=== PATIENT | female | born 1945 | race Caucasian/White ===

== ENCOUNTER 2017-04-17 20:04 | Emergency (ER) | payer MEDICARE, OTHER ==
--- NOTE | 2017-04-17 21:24 | CT ---
EXAMINATION TYPE: CT brain robert wo con DATE OF EXAM: 04/17/2017 COMPARISON: NONE HISTORY: Slip and fall today. Right periorbital soft tissue swelling. CT DLP: 1486.6 mGycm. Automated Exposure Control for Dose Reduction was Utilized. TECHNIQUE: CT scan of the head and cervical spine are performed without contrast. FINDINGS: There is no acute intracranial hemorrhage or midline shift identified. There is diffuse v entricular and sulcal prominence consistent with diffuse age-related cerebral atrophy. There is low- attenuation in the periventricular white matter consistent with chronic small vessel ischemic change. The globes are intact. Moderate right mucosal thickening is seen within the maxillary sinus as well as mild ethmoidal mucosal thickening. Remaining paranasal sinuses are well aerated. Right periorbita l soft tissue swelling is noted that is preseptal extending over the right maxilla. Cervical spine is visualized in its entirety from C1 through upper thoracic levels and demonstrates s atisfactory alignment without evidence of acute fracture or dislocation. Multilevel moderate degenera tive changes of the cervical spine are demonstrated as small posterior disc osteophyte complexes at C 4-C5, C5-C6 and C6-C7 creating mild spinal canal stenosis as well as multilevel uncovertebral hypertr ophy and facet arthropathy creating variable degrees of neural foraminal stenosis. At C4-C5 there is mild right-sided neural foraminal narrowing. At C5-C6 there is moderate bilateral neural foraminal na rrowing. At C6-C7 there is mild right-sided neural foraminal narrowing. Prevertebral soft tissue appe ars within normal limits. The C1-C2 articulation is unremarkable. IMPRESSION: 1. There is no acute fracture or dislocation evident in the cervical spine. 2. No acute intracranial hemorrhage, mass effect, or midline shift is seen. 3. Diffuse age-related cerebral atrophy and chronic small vessel ischemic change. 4. Preseptal right periorbital soft tissue swelling. 4. Moderate paranasal sinus disease. 5. Moderate multilevel degenerative changes of the cervical spine resulting in mild spinal canal sten osis from C4 through C7.
--- NOTE | 2017-04-17 21:32 | CT ---
EXAMINATION TYPE: CT facial bones wo con DATE OF EXAM: 04/17/2017 HISTORY: Slip and fall today. CT DLP: 691.5 mGycm. Automated Exposure Control for Dose Reduction was Utilized. TECHNIQUE: CT scan of the facial bones is performed without contrast. COMPARISON: CT brain of the same date. FINDINGS: There is circumferential moderate mucosal thickening of the right maxillary sinus. Presept al periorbital soft tissue swelling is seen around the right orbit. Globes are intact and lenses are in place. Extraocular muscles are symmetric. No post septal soft tissue swelling. Lamina Propecia and nasal bone are also intact. There is leftward nasal deviation, either congenital or related to prior injury. Nasal septum is also intact. Scant mucosal thickening is seen within the ethmoid sinuses. Re maining paranasal sinuses are well aerated. There is occlusion of the right ostiomeatal complex. Left ostium renal complex is patent. No orbital fracture is identified. Visualized portions of the brain are discussed in the CT brain dictation of the same date. IMPRESSION: 1. Right periorbital preseptal soft tissue swelling without evidence of lens dislocation, globe ruptu re, or orbital fracture. 2. Moderate paranasal sinus disease.
[2017-04-17 21:47] VITALS: TEMP 97.8
[2017-04-17 21:49] VITALS: BP 186/83; PULSE 88; RESP 18
[2017-04-17] MEDS ORDERED: ACETAMINOPHEN TAB 500 MG TAB PO STA (21:54)
--- NOTE | 2017-04-17 21:58 | ED ---
General Adult HPI - General Chief complaint: Head Injury Stated complaint: facial injury Time Seen by Provider: 04/17/17 21:42 Source: patient, family, RN notes reviewed Mode of arrival: ambulatory Limitations: no limitations - History of Present Illness Initial comments: 71-year-old female presents emergency department with a chief complaint of right -sided facial pain. Patient had a trip and fall today and hit the right side of her face. She states it happened this morning. She states now some swelling and bruising around her right eye so she became concerned. Patient states there is been no loss of consciousness with this. She states was a simple trip and fall there is no chest pain shortness of breath lightheadedness or dizziness before this. She states she's having some head pain and neck pain. She denies any arm pain any hip pain. She was able to get up by herself following the incident. They were concerned due to the continued symptoms so she thought that she should be seen. Patient denies any recent fever, chills, shortness of breath, chest pain, back pain, abdominal pain, nausea vomiting, numbness or tingling, dysuria or hematuria, constipation or diarrhea, headaches or visual changes, or any other current symptoms. - Related Data Home Medications Medication Instructions Recorded Confirmed Liraglutide [Victoza 2-Stepan] 1.8 mg SQ DAILY 02/13/15 04/17/17 Ergocalciferol [Vitamin D2 50,000 unit PO Q30D 11/23/15 11/23/15 (DRISDOL)] Simvastatin 40 mg PO HS 11/23/15 11/23/15 Tiotropium 18 Mcg/Puff [Spiriva] 1 puff INHALATION RT-DAILY 11/23/15 11/23/15 Hydrochlorothiazide [Hydrodiuril] 25 mg PO DAILY 04/17/17 04/17/17 Insulin Glargine [Lantus] 120 unit SQ HS 04/17/17 04/17/17 Insulin Lispro [humaLOG Kwikpen] 26 unit SQ AC-BID@1000,1600 04/17/17 04/17/17 Previous Rx's Medication Instructions Recorded Levothyroxine Sodium [Levoxyl] 112 mcg PO DAILY #30 tab 11/26/15 Allergies Allergy/AdvReac Type Severity Reaction Status Date / Time No Known Allergies Allergy Verified 04/17/17 21:45 Review of Systems ROS Statement: Those systems with pertinent positive or pertinent negative responses have been documented in the HPI. ROS Other: All systems not noted in ROS Statement are negative. Past Medical History Past Medical History: Diabetes Mellitus, GERD/Reflux, Hypertension, Thyroid Disorder Additional Past Medical History / Comment(s): sciatica, hernia History of Any Multi-Drug Resistant Organisms: None Reported Past Surgical History: Bowel Resection, Cholecystectomy, Hysterectomy Additional Past Surgical History / Comment(s): repair of bowel from colonoscopy Past Psychological History: No Psychological Hx Reported Smoking Status: Never smoker Past Alcohol Use History: None Reported Past Drug Use History: None Reported General Exam - General Exam Comments Initial Comments: General: The patient is awake and alert, in no distress, and does not appear acutely ill. Head: Ecchymosis and swelling under the right eye. Eye: Pupils are equal, round and reactive to light, extra-ocular movements are intact; there is normal conjunctiva bilaterally. No signs of icterus. Ears, nose, mouth and throat: There are moist mucous membranes and no oral lesions. Neck: The neck is supple, there is no tenderness. Cardiovascular: There is a regular rate and rhythm. No murmur, rub or gallop is appreciated. Respiratory: Lungs are clear to auscultation, respirations are non-labored, breath sounds are equal. No wheezes, stridor, rales, or rhonchi. Gastrointestinal: Soft, non-distended, non-tender abdomen without masses or organomegaly noted. There is no rebound or guarding present. No CVA tenderness. Bowel sounds are unremarkable. Back: There is no tenderness to palpation in the midline. There is no obvious deformity. No rashes noted. Musculoskeletal: Normal ROM, no tenderness, There is no pedal edema. There is no calf tenderness or swelling. Sensation intact. Pulses equal bilaterally 2+. Neurological: CN II-XII intact, There are no obvious motor or sensory deficits. Coordination appears grossly intact. Speech is normal. Skin: Skin is warm and dry and no rashes or lesions are noted. Psychiatric: Cooperative, appropriate mood & affect, normal judgment. Limitations: no limitations Course Vital Signs 04/17/17 04/17/17 20:23 21:45 Temperature 98.8 F 97.8 F Pulse Rate 51 L 88 Respiratory 20 18 Rate Blood Pressure 191/91 186/83 O2 Sat by Pulse 96 95 Oximetry Medical Decision Making - Medical Decision Making 72-year-old female presents for treatment fall. This time CT is negative for any acute process. At this time we discussed using Motrin Tylenol for pain. We did discuss return parameters and follow-up with watch for possible outcomes. We discussed all the patient and family's questions. They stated the Pedro management this plan. All questions have been answered. At this time they will be discharged. Disposition Clinical Impression: Facial contusion, Fall, Cervical strain, acute Disposition: HOME SELF-CARE Condition: Stable Instructions: Contusion in Adults (ED), Head Injury (ED) Additional Instructions: Please use medication as discussed. Please follow up with family doctor if symptoms have not improved over the next two days. Please return to the emergency room if your symptoms increase or worsen or for any other concerns. Ice the area 20 minutes on 20 minutes off for next 24 hours. Referrals: Bryan Shine DO [Primary Care Provider] - 1-2 days Time of Disposition: 21:57
== END 2017-04-17 22:05 | disposition home or self-care (01) ==
LOC: EC 20:04
DX: S16.1XXA Strain of muscle, fascia and tendon at neck level, initial encounter (principal); S00.11XA Contusion of right eyelid and periocular area, initial encounter; I10 Essential (primary) hypertension; E11.9 Type 2 diabetes mellitus without complications; Z79.4 Long term (current) use of insulin; Z79.899 Other long term (current) drug therapy; W00.0XXA Fall on same level due to ice and snow, initial encounter; Y92.009 Unspecified place in unspecified non-institutional (private) residence as the place of occurrence of the external cause
CPT/HCPCS: 70450; 70486; 72125; 99283

== ENCOUNTER → 2017-05-24 | Outpatient (CLI) | payer MEDICARE, OTHER ==
[2017-05-24 14:40] LABS: Potassium 3.5 mmol/L (3.5-5.1)
== END | disposition home or self-care (01) ==
LOC: LABPAT 14:05
PROVIDERS: ATTEND Anesthesiology
DX: Z01.812 Encounter for preprocedural laboratory examination (principal); I10 Essential (primary) hypertension; E11.9 Type 2 diabetes mellitus without complications
CPT/HCPCS: 36415; 80051; 82565; 82947; 84520; 86850; 86900; 86901

== ENCOUNTER → 2017-06-05 | Outpatient (CLI) | payer MEDICARE, OTHER | END | disposition home or self-care (01) | LOC: LABWHC1 09:00 | PROVIDERS: ATTEND Anesthesiology | DX: Z01.812 Encounter for preprocedural laboratory examination (principal) | CPT/HCPCS: 36415; 86850; 86900; 86901 ==

== ENCOUNTER 2017-06-08 09:57 | Day surgery (SDC) | payer MEDICARE, OTHER ==
[2017-06-01 10:56] VITALS: BMI 36.6
--- NOTE | 2017-06-08 07:47 | P.GSHP ---
History of Present Illness H&P Date: 06/08/17 CHIEF COMPLAINT: Hernias. HISTORY OF PRESENT ILLNESS: Linh Cervantes is a 72 year-old female who reports back in 2008 having a colonoscopy with Dr. Chan where she had a perforated colon and emergency surgery. As a result, she now comes in with an incisional hernia of the lower abdomen. Separately, she comes in with a BMI over 36. She has hypertension, diabetes, as well as gastroesophageal reflux disease and hyperlipidemia. She has multiple comorbidities related to her obesity. She has tried losing weight, without success as she also has hypothyroidism. She now presents for further evaluation and management. PAST MEDICAL HISTORY: Please see list. PAST SURGICAL HISTORY: Please see list. MEDICATIONS: Please see list. ALLERGIES: Please see list. SOCIAL HISTORY: No illicit drug use FAMILY HISTORY: No reports of Crohn disease or ulcerative colitis. REVIEW OF ORGAN SYSTEMS: CONSTITUTIONAL: No reports of fevers or chills. GI: Denies any blood in stools or constipation. PHYSICAL EXAM: Patient is a 72-year-old female. Abdomen: 3 cm reducible umbilical hernia. Of the lower abdomen, a 4 x 3 cm incisional hernia of the lower midline. Abdomen is protuberant. Pannus with mild panniculitis was identified. GENERAL: Well developed and in no acute distress. Pleasant. HEENT: No sclera icterus. Extraocular movements grossly intact. Moist buccal mucosa. Head is atraumatic, normocephalic. Hears conversational speech. No nasal drainage. NECK: Supple without lymphadenopathy. No JV distention. CHEST: Non-labored respirations and equal bilateral excursions. CARDIOVASCULAR: Regular rate and rhythm. Palpable 2+ radial pulses. MUSCULOSKELETAL: No clubbing, cyanosis or edema. NEUROLOGIC: No focal or lateralizing signs. PSYCH: Appropriate affect. Alert and oriented to person, place and time. SKIN: Well perfused. Good skin turgor. ASSESSMENT: 1. Incisional hernia. 2. Umbilical hernia. 3. Morbid obesity. 4. Insulin dependent diabetes. 5. Hypothyroidism. 6. Panniculitis. PLAN: 1. Have recommended options to address her weight, whereby she is referred to the Bariatric seminar. 2. Robotic assisted ventral hernia repair was described. We did discuss the placement of the mesh. Since she is seeking additional surgeries, potentially mesh repair would be avoided. 3. She has completed cardiac risk assessment. 4. DVT prophylaxis. 5. Antibiotics prophylaxis. Past Medical History Past Medical History: Diabetes Mellitus, GERD/Reflux, Hypertension, Thyroid Disorder Additional Past Medical History / Comment(s): EC VISIT ON 04/17/17, RIGHT FACIAL INJURY, NO FX. Sciatica. Hernia History of Any Multi-Drug Resistant Organisms: None Reported Past Surgical History: Bowel Resection, Cholecystectomy, Hysterectomy Additional Past Surgical History / Comment(s): "repair of bowel from colonoscopy " Past Anesthesia/Blood Transfusion Reactions: No Reported Reaction Past Psychological History: No Psychological Hx Reported Smoking Status: Never smoker Past Alcohol Use History: None Reported Past Drug Use History: None Reported - Past Family History Mother Family Medical History: No Reported History Medications and Allergies Home Medications Medication Instructions Recorded Confirmed Type Liraglutide [Victoza 2-Stepan] 1.8 mg SQ AC-LUNCH 02/13/15 06/01/17 History Ergocalciferol [Vitamin D2 50,000 unit PO Q30D 11/23/15 06/01/17 History (DRISDOL)] Tiotropium 18 Mcg/Puff [Spiriva] 1 puff INHALATION DAILY PRN 11/23/15 06/01/17 History Hydrochlorothiazide [Hydrodiuril] 25 mg PO QAM 04/17/17 06/01/17 History Insulin Glargine [Lantus] 120 unit SQ HS 04/17/17 06/01/17 History Insulin Lispro [humaLOG Kwikpen] 26 unit SQ AC-BID@1000,1600 04/17/17 06/01/17 History Levothyroxine Sodium [Levoxyl] 112 mcg PO QAM 05/24/17 06/01/17 History HYDROcodone/APAP 5-325MG [[place] 1 tab PO Q4HR PRN 06/01/17 06/01/17 History 5-325] Allergies Allergy/AdvReac Type Severity Reaction Status Date / Time No Known Allergies Allergy Verified 06/01/17 10:35
[~2017-06-08 09:57] MED LIST: DEXAMETHASONE SOD PHOSPHATE 10 MG/ML 1 ML VIAL IV ONE; HEPARIN SODIUM,PORCINE 5,000 UNIT/ML 1 ML VIAL SQ ONE; HYDROmorphone 0.5 MG/0.5 ML SYRINGE IVP PRN; LIDOCAINE 1% 20 ML VIAL (10MG/ML) FOR IV START INTRADERMA PRN; MIDAZOLAM 2 MG/2 ML VIAL IV PRN; MORPHINE SULFATE 2 MG/ML SYRINGE IV PRN; ONDANSETRON 4 MG/2 ML VIAL IVP ONE; SCOPOLAMINE 1.5MG/72HR PATCH TRANSDERM ONE; ceFAZolin IN SWFI 2 GM/20 ML SYRINGE IVP ONE
[2017-06-08] MEDS: LACTATED RINGERS 1,000 ML IV SCH ×2 (10:44→11:09)
[2017-06-08 10:45] LABS: Glucose,Whole Blood 183 mg/dL (75-99)
[2017-06-08 10:58] LABS: Basophils # (A) 0.1 k/uL (0-0.2); Basophils % (A) 1 %; Eosinophils # (A) 0.3 k/uL (0-0.7); Eosinophils % (A) 3 %; HCT 42.9 % (34.0-46.0); HGB 15.4 gm/dL (11.4-16.0); Lymphocytes # (A) 2.2 k/uL (1.0-4.8); Lymphocytes % (A) 21 %; MCH 30.1 pg (25.0-35.0); MCHC 35.9 g/dL (31.0-37.0); MCV 83.8 fL (80.0-100.0); Mean Platelet Volume 6.4; Monocytes # (A) 0.4 k/uL (0-1.0); Monocytes % (A) 4 %; Neutrophils # (A) 7.4 k/uL (1.3-7.7); Neutrophils % (A) 71 %; Platelet Count 279 k/uL (150-450); RBC 5.11 m/uL (3.80-5.40); RDW 14.1 % (11.5-15.5); WBC 10.4 k/uL (3.8-10.6)
[2017-06-08] MEDS ORDERED: BUPIVACAINE (PF) 0.25% 30 ML VIAL SQ ONE (11:07)
[2017-06-08] MEDS ORDERED: SUCCINYLCHOLINE CHLORIDE 100 MG/5 ML SYR IV ONE (11:11)
[2017-06-08] MEDS ORDERED: GLYCOPYRROLATE 0.2 MG/ML 2 ML VIAL ONE (11:11)
[2017-06-08] MEDS ORDERED: ROCURONIUM BROMIDE 10 MG/ML 10 ML VIAL IV ONE (11:11)
[2017-06-08] MEDS ORDERED: ePHEDrine 50 MG/ML 1 ML AMP ONE (11:11)
[2017-06-08] MEDS ORDERED: hydrALAZINE HCL 20 MG/ML 1 ML VIAL ONE (11:11)
[2017-06-08] MEDS ORDERED: MIDAZOLAM 2 MG/2 ML VIAL ONE (11:11)
[2017-06-08] MEDS ORDERED: ROPIVACAINE 5 MG/ML 30 ML VIAL ONE (11:11)
[2017-06-08] MEDS ORDERED: PROPOFOL 10 MG/ML 20 ML VIAL IV ONE (11:11)
[2017-06-08] MEDS ORDERED: fentaNYL (PF) 50 MCG/ML 2 ML AMP ONE (11:11)
[2017-06-08] MEDS ORDERED: LIDOCAINE 1% INJ 10MG/ML (20 ML MDV) ONE (11:11)
[2017-06-08] MEDS ORDERED: NEOSTIGMINE 1 MG/ML 10 ML VIAL ONE (11:11)
[2017-06-08] MEDS ORDERED: BUPIVACAINE (PF) 0.5% 30 ML VIAL SQ ONE (11:48)
[2017-06-08] MEDS ORDERED: LACTATED RINGERS 1,000 ML IV ONE (13:13)
[2017-06-08 13:25] VITALS: RESP 16; TEMP 98.2
[2017-06-08] MEDS: fentaNYL (PF) 50 MCG/ML 2 ML AMP IV PRN ×2 (13:26→13:41)
--- NOTE | 2017-06-08 13:27 | P.OP ---
Date of Procedure: 06/08/17 Description of Procedure: SURGEON: GAEL SOSA MD NATURAL SCIENCES MANAGER: 1. EDVIN CABRALES PREOPERATIVE DIAGNOSES: 1. Initial incisional ventral hernia, initial 2. Umbilical hernia, initial 3. History of previous exploratory laparotomy 4. Morbid obesity due to excess calories 5. Body mass index 36.6 6. Diabetes type insulin-dependent 7. Diffuse osteoarthritis 8. Chronic obstructive pulmonary disease 9. Hypothyroidism 10. Heart arrhythmia, big[place]y POSTOPERATIVE DIAGNOSES: 1. Initial incisional ventral hernia, initial 2. Umbilical hernia, initial 3. History of previous exploratory laparotomy 4. Morbid obesity due to excess calories 5. Body mass index 36.6 6. Diabetes type insulin-dependent 7. Diffuse osteoarthritis 8. Chronic obstructive pulmonary disease 9. Hypothyroidism 10. Heart arrhythmia, [place]y 12. Moderate peritoneal adhesions right upper quadrant and lower midline, greater omentum to abdominal wall 13. Incarcerated incisional ventral hernia 5 cm, lower midline, initial 14. Incarcerated umbilical hernia, 3 cm, initial OPERATION: 1. Robotic-assisted da Huy Si laparoscopic lysis of adhesions over 30 minutes , midline and right upper quadrant 2. Robotic-assisted da Huy Si laparoscopic repair of initial incarcerated incisional hernia 5 cm without mesh, lower abdomen 3. Robotic-assisted da Huy Si laparoscopic repair of initial incarcerated umbilical hernia 3 cm without mesh, lower abdomen ANESTHESIA: General with local ESTIMATED BLOOD LOSS: 10 mL. SPECIMENS: None. COMPLICATIONS: None. INDICATIONS: The patient is a 72-year-old female who presents with pain and swelling along the lower abdomen including periumbilical pain. Her history significant for previous exploratory laparotomy for perforated colon during colonoscopy. Clinical exam are consistent with incisional hernia including umbilical hernia. Additionally, she completed cardiac risks assessment within 3 months of her procedure. Surgical intervention with laparoscopic versus robotic and open techniques were reviewed. Placement of mesh was also reviewed. As patient wanted to avoid mesh, mesh repair is deferred. Benefits and risks were thoroughly described. Informed consent was obtained. DESCRIPTION OF PROCEDURE: The patient was brought into the operating room and laid in supine position. After general induction, the abdomen had been prepped and draped in standard sterile fashion. Ioban draping was also placed. Prior to incision, a timeout protocol was confirmed with surgical team regarding the patient's name including procedures to be performed. The robot was primed prior to the procedure. A field block using local anesthetic was placed along hernia site including the proposed port sites. Initial incision was made with an #11 blade along the left upper quadrant. A 0 degree 5 mm laparoscopic trocar entry was performed. Diagnostic laparoscopy demonstrated moderate peritoneal adhesions involving the right upper quadrant and midline of greater omentum to abdominal wall. Separately an incarcerated incisional hernia with omentum of the lower midline was identified. A separate incarcerated umbilical hernia was also identified. A 12 mm trocar was placed along the left lateral abdominal wall. An 8 mm port was placed along the left lower quadrant under direct localization. The 5-mm port was exchanged for an 8 mm robotic port. Placements of the ports were 15 cm from the target anatomy and approximately 10 cm apart. The da Huy Si robot was previously primed, prepped and draped then docked along the right side of the patient. I then sat at the robot Da Huy Si console where working arms of the robot including Bovie cautery connected to robotic scissors, vessel sealer, needle show horse driver, and graspers placed by the construction management assistant. Adhesions along the right upper quadrant and midline were initially addressed with vessel sealer including blunt dissection for the greater omentum to the abdominal wall. Lysis of adhesions occurred for over 30 minutes. Attention was brought to the umbilicus where an incarcerated hernia of 3 cm was identified also containing omentum. Additionally, along the lower midline, a 5 cm incarcerated hernia of the lower midline was found. The incarcerated contents was reduced as the peritoneal fat was cleaned from the abdominal wall. Next, hemostasis was checked. The hernia defects of were oversewn using #1 Stratafix x 2 with imbrication 4. A final endoscopic imaging was obtained. All instruments and pneumoperitoneum were evacuated from the abdominal cavity. The da Huy Si robot was undocked from the patient. I re-scrubbed into the case for closure of incisions. The fascia of the 12-mm port was probed and less than 8-mm in size. The incisions were reapproximated using 4-0 Monocryl in an interrupted subcuticular fashion. Dermabond liquid glue was applied to the skin after cleansing the skin with normal saline and dilute hydrogen peroxide. An abdominal binder was placed. At the end of the procedure, needle, sponge, and instrument count had been verified correct by instructor adjunct surgical technician. The patient was taken to the postanesthesia care unit in stable condition. FINDINGS: 1. Initial incisional incarcerated hernia of the lower midline from previous surgery, 5 cm 2. Peritoneal adhesions of the right upper quadrant and midline lysed over 30 minutes without enterotomies 3. Initial incarcerated umbilical hernia, 3 cm Plan - Discharge Summary New Discharge Prescriptions: New HYDROcodone/APAP 5-325MG [[place] 5-325] 1 tab PO Q6HR PRN #30 tab PRN Reason: Pain Ibuprofen [Motrin] 600 mg PO Q8HR PRN #30 tab PRN Reason: Pain No Action Liraglutide [Victoza 2-Stepan] 1.8 mg SQ AC-LUNCH Ergocalciferol [Vitamin D2 (DRISDOL)] 50,000 unit PO Q30D Tiotropium 18 Mcg/Puff [Spiriva] 1 puff INHALATION DAILY PRN PRN Reason: Shortness Of Breath Or Wheezing Insulin Lispro [humaLOG Kwikpen] 26 unit SQ AC-BID@1000,1600 Insulin Glargine [Lantus] 120 unit SQ HS Hydrochlorothiazide [Hydrodiuril] 25 mg PO QAM Levothyroxine Sodium [Levoxyl] 112 mcg PO QAM HYDROcodone/APAP 5-325MG [[place] 5-325] 1 tab PO Q4HR PRN PRN Reason: Pain Discharge Medication List Liraglutide [Victoza 2-Stepan] 1.8 mg SQ AC-LUNCH 02/13/15 [History] Ergocalciferol [Vitamin D2 (DRISDOL)] 50,000 unit PO Q30D 11/23/15 [History] Tiotropium 18 Mcg/Puff [Spiriva] 1 puff INHALATION DAILY PRN 11/23/15 [History] Hydrochlorothiazide [Hydrodiuril] 25 mg PO QAM 04/17/17 [History] Insulin Glargine [Lantus] 120 unit SQ HS 04/17/17 [History] Insulin Lispro [humaLOG Kwikpen] 26 unit SQ AC-BID@1000,1600 04/17/17 [History] Levothyroxine Sodium [Levoxyl] 112 mcg PO QAM 05/24/17 [History] HYDROcodone/APAP 5-325MG [[place] 5-325] 1 tab PO Q4HR PRN 06/01/17 [History] HYDROcodone/APAP 5-325MG [[place] 5-325] 1 tab PO Q6HR PRN #30 tab 06/08/17 [Rx] Ibuprofen [Motrin] 600 mg PO Q8HR PRN #30 tab 06/08/17 [Rx] Follow up Appointment(s)/Referral(s): Gael Sosa MD [STAFF PHYSICIAN] - 06/13/17 Patient Instructions/Handouts: Abdominal Binder (DC), Laparoscopic Herniorrhaphy (DC) Activity/Diet/Wound Care/Special Instructions: No lifting over 4 pound (half galloon of milk) in 4 weeks. May shower. No bath tub soaks. Wear abdominal binder at all times except for showering. Discharge Disposition: HOME SELF-CARE
[2017-06-08] MEDS ORDERED: MEPERIDINE 50 MG/ML SYRINGE IVP ONE (13:55)
[2017-06-08 15:10] LABS: Glucose,Whole Blood 225 mg/dL (75-99)
[2017-06-08] MEDS ORDERED: INSULIN REGULAR 100 UNIT/ML VIAL SQ ONE (15:25)
[2017-06-08] MEDS ORDERED: HYDROcodone/APAP 5-325MG 1 EACH TAB PO ONE (15:38)
[2017-06-08 16:45] VITALS: BP 152/68; PULSE 66
--- NOTE | 2017-06-08 18:38 | P.ONQ ---
Anesthesiology Proc Note - PNB - Peripheral Nerve Block Performed Transversus Abdominis Single Time Out Performed: Yes Procedure Start Time: 14:31 Procedure Stop Time: 14:44 Indication: Acute Post-Operative Pain, Requested by physician Sedation Type: Sedate with meaningful contact maintained Preparation: Sterile Prep Position: Supine Needle Size: 100mm (4") Needle Gauge: 21 Technique: Ultrasound Injectate: 0.5% Ropivacaine (see comment for volume) (ropi .5% 20cc injected bilaterally) Blood Aspirated: No Pain Paresthesia on Injection Noted: No Resistance on Injection: Normal Events: Uneventful and Well Tolerated
== END 2017-06-08 17:18 | disposition home or self-care (01) ==
LOC: OR 09:57
PROVIDERS: ATTEND Surgery Plastic and Reconstructive Surgery
DX: K43.0 Incisional hernia with obstruction, without gangrene (principal); K42.0 Umbilical hernia with obstruction, without gangrene; K66.0 Peritoneal adhesions (postprocedural) (postinfection); Z98.890 Other specified postprocedural states; E66.01 Morbid (severe) obesity due to excess calories; Z68.36 Body mass index [BMI] 36.0-36.9, adult; E11.9 Type 2 diabetes mellitus without complications; M19.90 Unspecified osteoarthritis, unspecified site; E03.9 Hypothyroidism, unspecified; J44.9 Chronic obstructive pulmonary disease, unspecified; I49.40 Unspecified premature depolarization; M79.3 Panniculitis, unspecified; I10 Essential (primary) hypertension; K21.9 Gastro-esophageal reflux disease without esophagitis; E78.5 Hyperlipidemia, unspecified; Z90.49 Acquired absence of other specified parts of digestive tract; Z79.890 Hormone replacement therapy; Z79.4 Long term (current) use of insulin; Z79.899 Other long term (current) drug therapy
CPT/HCPCS: 49655; 49653; 85025; J2250; J0360; J1644; J1100; J2710; J2175; J2405; J2001; J3010; J2795; J0330; J2704; J0690; 36415; 86850; 86900; 86901

== ENCOUNTER → 2017-08-23 | Outpatient (CLI) | payer MEDICARE, OTHER ==
[2017-08-23 16:22] VITALS: PULSE 39; TEMP 98; BMI 37.4
[2017-08-23 17:01] VITALS: BP 152/68; RESP 15
--- NOTE | 2017-08-23 18:04 | P.HPBAR ---
Bariatric H&P - History & Physicial H&P Date: 08/23/17 History & Physicial: Visit/CC: first visit Patient initial contact: Initial weight: 95.889 kg Initial weight in pounds: 211.40 Height: 5 ft 3 in Initial BMI: 37.4 Last weight: Current weight: 95.889 kg Current weight in pounds: 211.40 Current BMI: 37.4 [place] body weight (based on NIH guidelines): 52.163 kg Excess body weight loss: 0.0% The patient is a 72 year-old F who presents for Bariatric Assessment. HPI: Patient well known to me. She comes in with new low heart rate and high blood pressure. PLAN: 1. [facility] options. 2. Follow-up with Dr. Katz Past Medical History Past Medical History: Diabetes Mellitus, GERD/Reflux, Hypertension, Thyroid Disorder Additional Past Medical History / Comment(s): EC VISIT ON 04/17/17, RIGHT FACIAL INJURY, NO FX. Sciatica. Hernia History of Any Multi-Drug Resistant Organisms: None Reported Past Surgical History: Bowel Resection, Cholecystectomy, Hysterectomy Additional Past Surgical History / Comment(s): "repair of bowel from colonoscopy " Past Anesthesia/Blood Transfusion Reactions: No Reported Reaction Smoking Status: Never smoker - Past Family History Mother Family Medical History: No Reported History Surgical - Exam Vital Signs Temp Pulse Resp BP 98 F 39 L 20 220/80 08/23/17 16:13 08/23/17 16:13 08/23/17 16:13 08/23/17 16:13 Bariatric Checklist Checklist: Plan: Checklist: EGD: 1. Hiatal hernia: 2. H. Pylori: HgbA1c: Vitamin D: Smoking: Never smoker Primary care physician referral: Dr Shine Psychiatry clearance: Cardiology clearance: Sleep study: Diet journal: VTE risk score: VTE risk level: Rehab needs at discharge:
[2017-08-23 18:32] LABS: HCT 46.8 % (34.0-46.0); HGB 15.2 gm/dL (11.4-16.0); MCH 28.3 pg (25.0-35.0); MCHC 32.5 g/dL (31.0-37.0); MCV 87.1 fL (80.0-100.0); Mean Platelet Volume 6.4; Platelet Count 265 k/uL (150-450); RBC 5.37 m/uL (3.80-5.40); RDW 14.8 % (11.5-15.5); WBC 10.1 k/uL (3.8-10.6)
[2017-08-23 18:50] LABS: ALT 33 U/L (9-52); AST 19 U/L (14-36); Alkaline Phosphatase 87 U/L (38-126); Anion Gap 11 mmol/L; Blood Urea Nitrogen 23 mg/dL (7-17); Calcium 9.9 mg/dL (8.4-10.2); Carbon Dioxide 28 mmol/L (22-30); Chloride 102 mmol/L (98-107); Cholesterol 176 mg/dL (<200); Glucose 160 mg/dL (74-99); HDL Cholesterol 49 mg/dL (40-60); LDL Cholesterol,Calculated 77 mg/dL (0-99); Potassium 4.7 mmol/L (3.5-5.1); Sodium 141 mmol/L (137-145); Total Bilirubin 0.4 mg/dL (0.2-1.3); Total Protein 6.6 g/dL (6.3-8.2); Triglycerides 249 mg/dL (<150)
[2017-08-24 01:02] LABS: Iron Saturation 20.66 (12.00-45.00)
== END | disposition home or self-care (01) ==
LOC: BARWHC3 14:00
PROVIDERS: ATTEND Surgery Plastic and Reconstructive Surgery
DX: E88.81 Metabolic syndrome and other insulin resistance (principal); E66.01 Morbid (severe) obesity due to excess calories; R00.1 Bradycardia, unspecified; R03.0 Elevated blood-pressure reading, without diagnosis of hypertension; E44.0 Moderate protein-calorie malnutrition; E55.9 Vitamin D deficiency, unspecified; I11.9 Hypertensive heart disease without heart failure; G47.30 Sleep apnea, unspecified; Z68.37 Body mass index [BMI] 37.0-37.9, adult
CPT/HCPCS: 84425; 80061; 80053; 82607; 82728; 82746; 83540; 83550; 84443; 85027; 93005; 36415; G0463; 99201

== ENCOUNTER → 2017-09-21 | Outpatient (CLI) | payer MEDICARE, OTHER ==
--- NOTE | 2017-09-21 08:49 | CT ---
EXAMINATION TYPE: CT chest wo con DATE OF EXAM: 09/21/2017 COMPARISON: 11/23/2015 HISTORY: SOB CT DLP: 1136.4 mGycm. Automated Exposure Control for Dose Reduction was Utilized. TECHNIQUE: CT scan of the thorax is performed without IV contrast. High-resolution CT protocol was p erformed, which limits evaluation for subcentimeter pulmonary nodules. FINDINGS: LUNGS: The previously seen left basilar consolidation has resolved in the interim. The cylindrical bi basilar atelectasis noted on the prior exam is very mild. Subpleural reticular opacities are seen, le ft greater than right there is slight ectasia of a left basilar pulmonary artery and series 8 image 2 1. No honeycombing is appreciated. No intralobular septal thickening. No focal consolidation. No pulm onary mass. No pleural effusion. The lungs are grossly clear, there is no concerning parenchymal mass or nodule identified. There is no pleural effusion or pneumothorax seen. The tracheobronchial luis e is patent. MEDIASTINUM: Lack of IV contrast is noted to limit evaluation for mediastinal and especially hilar ad enopathy. There are no definitive greater than 1 cm hilar or mediastinal lymph nodes. No cardiomega ly. Trace pericardial fluid is noted. OTHER: There is a small hiatal hernia present. Mild multilevel degenerative changes of the spine are seen. IMPRESSION: 1. Basilar predominant subpleural reticular opacities that aren't nonspecific but can be seen in agin g independent of smoking history or NSIP although there is no evidence of fibrosis at this time or ot her findings to support a diagnosis of NSIP on CT. There is resolution of the previously seen left ba silar consolidation with no new consolidation or pulmonary mass. The previously seen bronchiectasis i s very mild and bibasilar. 2. Small hiatal hernia.
== END | disposition home or self-care (01) ==
LOC: RADCTMAIN 07:42
PROVIDERS: ATTEND Internal Medicine
DX: J47.0 Bronchiectasis with acute lower respiratory infection (principal); K44.9 Diaphragmatic hernia without obstruction or gangrene; R91.8 Other nonspecific abnormal finding of lung field
CPT/HCPCS: 71250

== ENCOUNTER → 2017-10-11 | Outpatient (CLI) | payer MEDICARE, OTHER ==
[2017-10-11 12:37] LABS: Basophils # (A) 0.1 k/uL (0-0.2); Basophils % (A) 1 %; Eosinophils # (A) 0.2 k/uL (0-0.7); Eosinophils % (A) 2 %; HCT 44.2 % (34.0-46.0); HGB 14.4 gm/dL (11.4-16.0); Lymphocytes # (A) 2.1 k/uL (1.0-4.8); Lymphocytes % (A) 25 %; MCH 28.3 pg (25.0-35.0); MCHC 32.5 g/dL (31.0-37.0); MCV 87.2 fL (80.0-100.0); Mean Platelet Volume 6.6; Monocytes # (A) 0.4 k/uL (0-1.0); Monocytes % (A) 5 %; Neutrophils # (A) 5.4 k/uL (1.3-7.7); Neutrophils % (A) 66 %; Platelet Count 278 k/uL (150-450); RBC 5.07 m/uL (3.80-5.40); RDW 15.3 % (11.5-15.5); WBC 8.3 k/uL (3.8-10.6)
[2017-10-11 12:47] LABS: Potassium 4.8 mmol/L (3.5-5.1)
== END | disposition home or self-care (01) ==
LOC: LABPAT 11:32
PROVIDERS: ATTEND Internal Medicine Clinical Cardiac Electrophysiology
DX: Z01.812 Encounter for preprocedural laboratory examination (principal); E78.1 Pure hyperglyceridemia; I10 Essential (primary) hypertension; E11.9 Type 2 diabetes mellitus without complications; R00.1 Bradycardia, unspecified; R06.02 Shortness of breath
CPT/HCPCS: 36415; 80051; 82565; 84520; 85025

== ENCOUNTER 2017-10-12 14:42 | Day surgery (SDC) | payer MEDICARE, OTHER ==
[2017-10-11 12:12] VITALS: BMI 38.5
[~2017-10-12 14:42] MED LIST changes: -DEXAMETHASONE SOD PHOSPHATE 10 MG/ML 1 ML VIAL IV ONE; -HEPARIN SODIUM,PORCINE 5,000 UNIT/ML 1 ML VIAL SQ ONE; -HYDROmorphone 0.5 MG/0.5 ML SYRINGE IVP PRN; -LIDOCAINE 1% 20 ML VIAL (10MG/ML) FOR IV START INTRADERMA PRN; -MIDAZOLAM 2 MG/2 ML VIAL IV PRN; -MORPHINE SULFATE 2 MG/ML SYRINGE IV PRN; -ONDANSETRON 4 MG/2 ML VIAL IVP ONE; -SCOPOLAMINE 1.5MG/72HR PATCH TRANSDERM ONE; +ceFAZolin 1,000 MG in SODIUM CHLORIDE 0.9% IRRIGATIO 250 ML IRRIGATION ONE
[2017-10-12 15:19] LABS: Glucose,Whole Blood 122 mg/dL (75-99)
[2017-10-12] MEDS ORDERED: ceFAZolin IN SWFI 2 GM/20 ML SYRINGE IVP STA (16:39)
[2017-10-12] MEDS ORDERED: ceFAZolin 1,000 MG in DEXTROSE/WATER 1 50ML.BAG IVPB STA (16:45)
[2017-10-12] MEDS ORDERED: PROPOFOL 10 MG/ML 20 ML VIAL IV ONE (17:00)
[2017-10-12] MEDS ORDERED: hydrALAZINE HCL 20 MG/ML 1 ML VIAL ONE (17:00)
[2017-10-12] MEDS ORDERED: MIDAZOLAM 2 MG/2 ML VIAL ONE (17:00)
[2017-10-12] MEDS ORDERED: fentaNYL (PF) 50 MCG/ML 2 ML AMP ONE (17:00)
[2017-10-12] MEDS ORDERED: KETOROLAC 30 MG/ML 1 ML VIAL ONE (17:00)
[2017-10-12] MEDS ORDERED: LIDOCAINE 1% INJ 10MG/ML (20 ML MDV) SQ ONE ×3 (17:27→17:52)
[2017-10-12] MEDS ORDERED: IV FLUID CONTINUATION 300 ML IV ONE (17:27)
[2017-10-12] MEDS ORDERED: ACETAMINOPHEN IV (For NPO) 1,000 MG/100 ML VIAL IVPB ONE (18:03)
[2017-10-12] MEDS ORDERED: SODIUM CHLORIDE 0.9% 500 ML IV ONE ×3 (19:00→20:03)
[2017-10-12] MEDS ORDERED: ACETAMINOPHEN TAB 325 MG TAB PO PRN (19:37)
[2017-10-12] MEDS ORDERED: ACETAMINOPHEN IV (For NPO) 1,000 MG in EMPTY BAG 1 BAG IVPB ONE (19:37)
--- NOTE | 2017-10-12 19:37 | P.PCN ---
Preoperative Diagnosis: Transvenous temporary pacing procedure Indication for the procedure: Severe underlying bradycardia Patient was brought to the EP lab in a fasting state. Written informed consent was obtained prior to the procedure. The right groin was prepped and draped as a protocol. A 6-Ukrainian sheath was placed in the right femoral vein. Via this, a temporary pacing catheter was placed in the right ventricle. Thresholds were interrogated. Temporary pacing was performed through the rest of the procedure. At the end of the entire procedure, the TVP was removed. The sheath was removed and hemostasis was assured. Patient tolerated the procedure well without any acute complications. Procedure performed Transvenous temporary pacing
--- NOTE | 2017-10-12 20:10 | CE ---
CARDIAC ELECTROPHYSIOLOGY REPORT This patient is a 72-year-old female with third-degree heart block, symptomatic, with shortness of breath, not on any AV lisa-blocking drugs. No reversible causes. She was brought in for dual-chamber pacemaker implantation and attempted physiologic pacing. After TVP was placed, the left pectoral area was prepped and draped as per protocol. Lidocaine 1% was used for local anesthesia. A 4 cm incision was made parallel to the deltopectoral groove, about 1.5 cm medial to it. The incision was carried down to the level of the pectoralis muscle. A subfascial pocket was made. Hemostasis was assured. Axillary vein access was obtained. The right atrial lead was placed. Model #4574 Medtronic lead, 45 cm in length, serial number [id number]. The P waves were 4.4 mV. Pacing impedance 519 ohms, pacing threshold 0.5 V at 0.5 milliseconds. Ten-volt test was negative. The RV lead was screwed into the RV septum, Medtronic model #5076, 58 cm in length and serial number [id number]. R-waves 5.3 mV. Pacing impedance 1053 ohms, pacing threshold 0.7 V at 0.5 milliseconds. Ten-volt test was negative. Physiologic pacing was attempted; however, the lead could not be positioned in a stable location in the His bundle area and therefore this was abandoned. The leads were connected to the generator, Medtronic 0AZURE SDR MRI model number W3DR01, serial number [id number]. Leads and the generator were then placed in the subfascial pocket and the wound was closed in 3 layers and dressed per protocol. RESULT: Successful dual-chamber pacemaker implantation and device programmed to DDD 50-130 bpm with normal AV delays. MMODL / IJN: [id number] /
[2017-10-12 20:26] LABS: Glucose,Whole Blood 92 mg/dL (75-99)
[2017-10-12] MEDS ORDERED: SODIUM CHLORIDE 0.9% 1,000 ML IV ONE (20:43)
[2017-10-12] MEDS: INSULIN DETEMIR 100 UNIT/ML 10 ML VIAL SQ SCH ×2 (22:01→22:27)
[2017-10-12] MEDS: SODIUM CHLORIDE 0.9% 1,000 ML IV SCH ×2 (22:03)
[2017-10-12] MEDS: HYDROcodone/APAP 5-325MG 1 EACH TAB PO PRN (22:04)
[2017-10-12 22:10] LABS: Glucose,Whole Blood 121 mg/dL (75-99)
[2017-10-12] MEDS: ceFAZolin IN SWFI 2 GM/20 ML SYRINGE IVP SCH (22:10)
[2017-10-13] MEDS: HYDROcodone/APAP 5-325MG 1 EACH TAB PO PRN ×4 (02:03→15:40)
[2017-10-13] MEDS: SODIUM CHLORIDE 0.9% 1,000 ML IV SCH ×2 (02:31→02:32)
[2017-10-13] MEDS: ceFAZolin IN SWFI 2 GM/20 ML SYRINGE IVP SCH ×3 (04:05→15:41)
[2017-10-13] MEDS ORDERED: LEVOTHYROXINE 112 MCG TAB PO SCH (06:30)
[2017-10-13 08:06] LABS: Glucose,Whole Blood 110 mg/dL (75-99)
--- NOTE | 2017-10-13 08:13 | P.DS ---
Providers Attending physician: Jimbo Moncada Primary care physician: [facility] Course: Patient is doing well. She is sitting in bed comfortably no chest pain. She has minimal pain at the pacemaker site no hematoma Heart sounds are normal Breath sounds are clear Groins healing well Impression Third degree heart block with bradycardia, symptomatic with shortness of breath and exertion status post dual-chamber pacemaker TVP was placed right groin, during procedure Plan Discharge home after completion of IV antibiotics device interrogation and his chest x-ray is within normal limits Dr. Katz as scheduled and device clinic in 5 days Plan - Discharge Summary Discharge Rx Participant: Yes New Discharge Prescriptions: Continue RX: Liraglutide [Victoza 2-Stepan] 1.8 mg SQ AC-LUNCH RX: Ergocalciferol [Vitamin D2 (DRISDOL)] 50,000 unit PO Q30D RX: Tiotropium 18 Mcg/Puff [Spiriva] 1 puff INHALATION DAILY PRN PRN Reason: Shortness Of Breath Or Wheezing RX: Insulin Lispro [humaLOG Kwikpen] 26 unit SQ AC-BID@1000,1600 RX: Insulin Glargine [Lantus] 120 unit SQ HS RX: Hydrochlorothiazide [Hydrodiuril] 25 mg PO QAM RX: Levothyroxine Sodium [Levoxyl] 112 mcg PO QAM RX: HYDROcodone/APAP 5-325MG [[place] 5-325] 1 tab PO DAILY PRN PRN Reason: Pain RX: Ibuprofen [Motrin] 600 mg PO Q8HR PRN #30 tab PRN Reason: Pain RX: Losartan [Cozaar] 50 mg PO DAILY Discharge Medication List RX: Liraglutide [Victoza 2-Stepan] 1.8 mg SQ AC-LUNCH 02/13/15 [History] RX: Ergocalciferol [Vitamin D2 (DRISDOL)] 50,000 unit PO Q30D 11/23/15 [History] RX: Tiotropium 18 Mcg/Puff [Spiriva] 1 puff INHALATION DAILY PRN 11/23/15 [ History] RX: Hydrochlorothiazide [Hydrodiuril] 25 mg PO QAM 04/17/17 [History] RX: Insulin Glargine [Lantus] 120 unit SQ HS 04/17/17 [History] RX: Insulin Lispro [humaLOG Kwikpen] 26 unit SQ AC-BID@1000,1600 04/17/17 [ History] RX: Levothyroxine Sodium [Levoxyl] 112 mcg PO QAM 05/24/17 [History] RX: HYDROcodone/APAP 5-325MG [[place] 5-325] 1 tab PO DAILY PRN 06/01/17 [History] RX: Ibuprofen [Motrin] 600 mg PO Q8HR PRN #30 tab 06/08/17 [Rx] RX: Losartan [Cozaar] 50 mg PO DAILY 10/12/17 [History] Follow up Appointment(s)/Referral(s): Amarjit Katz MD [STAFF PHYSICIAN] - 1 Week (Follow-up the device clinic in [address] Bahena as previously scheduled) Activity/Diet/Wound Care/Special Instructions: PATIENT EDUCATION MATERIAL Instructions following a heart rhythm device implant. 1. Keep dressing DRY for 5 DAYS. You may cover the area with Saran or Cling Wrap, prior to a shower. 2. The dressing will be removed in the Device Clinic at [facility]. Absorbable sutures were used to close the wound. 3. Avoid raising the left arm above the shoulder level. 4 week restriction 4. Avoid arm movements, like backscratching, rubbing the head, or pulling on a cord. 4 weeks restriction 5. Gentle range of motion movements of the shoulder, closest to the incision should be performed to avoid a frozen shoulder. (Pendulum exercises of the shoulder) 6. The opposite arm may be used freely. 7. Avoid driving for 7 days. 8. Avoid activities such as golfing, swimming, weed whacking, lifting more than 10 pounds weight, bowling, gymnastics and weight training/lifting. (6 weeks restriction) 9. Activities such as wood chopping with an axe, pull-ups in the gymnasium, power lifting, arc-welding, being close to home induction cooktops will always be a problem. 10. Arm sling is a mere reminder not to raise the arm above the head. However you do not need to keep the arm completely immobilized. Your free to move the arm and use it and for normal activities. In case of any problems, please call [facility], Jonny Schneider, @ [phone], Attention: Device Clinic Device clinic follow-up in 5 days Follow-up with primary brim greaser operator in 2-3 months Discharge Disposition: HOME SELF-CARE
[2017-10-13 08:14] VITALS: RESP 16
[2017-10-13] MEDS ORDERED: HYDROCHLOROTHIAZIDE 25 MG TAB PO SCH (09:00)
--- NOTE | 2017-10-13 09:44 | XR ---
EXAMINATION TYPE: XR chest 2V DATE OF EXAM: 10/13/2017 COMPARISON: 09/19/2017 TECHNIQUE: PA and lateral views submitted. HISTORY: Post pacemaker placement FINDINGS: The lungs are clear and there is no pneumothorax, pleural effusion, or focal pneumonia. Double lead pacemaker seen with no evidence of pneumothorax. Biapical pleural thickening. Proximal lead overlies the right atrium and the distal lead overlies the right ventricle. Mild hypertrophic change of the s pine. IMPRESSION: 1. Pacemaker appears in good position with no postprocedural complication.
[2017-10-13] MEDS: INSULIN ASPART 100 UNIT/ML 1 ML 10 ML VIAL SQ SCH ×2 (10:52→15:42)
[2017-10-13 11:32] VITALS: BP 171/66; PULSE 66; TEMP 97.8
[2017-10-13 12:15] LABS: Glucose,Whole Blood 119 mg/dL (75-99)
[2017-10-13] MEDS ORDERED: NON-FORMULARY DRUG (Liraglutide [Victoza 2-Pak] 1.8 MG) SQ SCH (12:30)
== END 2017-10-13 16:26 | disposition home or self-care (01) ==
LOC: CATHEP 14:42 → 3OBS 19:40 → CATHEP 10-13 16:26
PROVIDERS: ATTEND Internal Medicine Clinical Cardiac Electrophysiology
DX: I44.2 Atrioventricular block, complete (principal); R00.1 Bradycardia, unspecified; I10 Essential (primary) hypertension; E78.5 Hyperlipidemia, unspecified; E11.9 Type 2 diabetes mellitus without complications; E07.9 Disorder of thyroid, unspecified; M19.90 Unspecified osteoarthritis, unspecified site; K21.9 Gastro-esophageal reflux disease without esophagitis; E66.9 Obesity, unspecified; Z68.39 Body mass index [BMI] 39.0-39.9, adult; Z79.890 Hormone replacement therapy; Z79.4 Long term (current) use of insulin; Z79.899 Other long term (current) drug therapy
CPT/HCPCS: 33208; 71046; C1769 ×6; C1894; C1892; C1730 ×2; C1898 ×2; C1785; J2250; J0360; J0690 ×4; J2001; J3010; J1885; J0131; J2704

== ENCOUNTER 2017-10-25 08:27 | Day surgery (SDC) | payer MEDICARE, OTHER ==
[2017-10-23 14:51] VITALS: BMI 38.5
[~2017-10-25 08:27] MED LIST changes: +LIDOCAINE 1% 20 ML VIAL (10MG/ML) FOR IV START INTRADERMA PRN; -ceFAZolin 1,000 MG in SODIUM CHLORIDE 0.9% IRRIGATIO 250 ML IRRIGATION ONE; -ceFAZolin IN SWFI 2 GM/20 ML SYRINGE IVP ONE
[2017-10-25 09:01] VITALS: RESP 16; TEMP 97.6
[2017-10-25] MEDS ORDERED: LIDOCAINE 1% 20 ML VIAL (10MG/ML) FOR IV START INTRADERMA ONE (09:14)
[2017-10-25] MEDS: LACTATED RINGERS 1,000 ML IV SCH ×2 (09:14→09:27)
[2017-10-25 09:15] LABS: Glucose,Whole Blood 161 mg/dL (75-99)
[2017-10-25] MEDS ORDERED: PROPOFOL 10 MG/ML 20 ML VIAL IV ONE (09:29)
--- NOTE | 2017-10-25 09:31 | P.GSHP ---
History of Present Illness H&P Date: 10/25/17 CHIEF COMPLAINT: GERD HISTORY OF PRESENT ILLNESS: The patient is a 72-year-old female who presents reports gastroesophageal reflux disease. Upper endoscopy was offered for further evaluation and management. PAST MEDICAL HISTORY: Please see list. PAST SURGICAL HISTORY: Please see list. MEDICATIONS: Please see list. ALLERGIES: Please see list. SOCIAL HISTORY: No illicit drug use FAMILY HISTORY: No reports of Crohn disease or ulcerative colitis. REVIEW OF ORGAN SYSTEMS: CONSTITUTIONAL: No reports of fevers or chills. GI: Denies any blood in stools or constipation. PHYSICAL EXAM: VITAL SIGNS: Stable GENERAL: Well-developed and pleasant in no acute distress. HEENT: No scleral icterus. Extraocular movements grossly intact. Moist buccal mucosa. NECK: Supple without lymphadenopathy. CHEST: Unlabored respirations. Equal bilateral excursions. CARDIOVASCULAR: Regular rate and rhythm. Distal 2+ pulses. ABDOMEN: Soft, nondistended. MUSCULOSKELETAL: No clubbing, cyanosis, or edema. ASSESSMENT: 1. Gastroesophageal reflux disease PLAN: 1. Recommend proceeding with an upper endoscopy Past Medical History Past Medical History: Diabetes Mellitus, Hyperlipidemia, Hypertension, Thyroid Disorder Additional Past Medical History / Comment(s): sciatica, bradycardia, hiatal hernia, History of Any Multi-Drug Resistant Organisms: None Reported Past Surgical History: Bowel Resection, Cholecystectomy, Hernia Repair, Hysterectomy, Pacemaker Additional Past Surgical History / Comment(s): "repair of perforation of bowel from colonoscopy" Past Anesthesia/Blood Transfusion Reactions: No Reported Reaction Type of Cardiac Device: Permanent Pacemaker Device Placement Date:: 10/12/17 Smoking Status: Never smoker - Past Family History Mother Family Medical History: No Reported History Medications and Allergies Home Medications Medication Instructions Recorded Confirmed Type Ergocalciferol [Vitamin D2 50,000 unit PO QMONTH 11/23/15 10/25/17 History (DRISDOL)] Tiotropium 18 Mcg/Puff [Spiriva] 1 puff INHALATION DAILY PRN 11/23/15 10/25/17 History Hydrochlorothiazide [Hydrodiuril] 25 mg PO QAM 04/17/17 10/25/17 History Insulin Glargine [Lantus] 120 unit SQ HS 04/17/17 10/25/17 History Insulin Lispro [humaLOG Kwikpen] 26 unit SQ AC-BID@1000,1600 04/17/17 10/25/17 History Levothyroxine Sodium [Levoxyl] 112 mcg PO QAM 05/24/17 10/25/17 History HYDROcodone/APAP 5-325MG [[place] 1 tab PO DAILY PRN 06/01/17 10/25/17 History 5-325] Ibuprofen [Motrin] 600 mg PO Q8HR PRN #30 tab 06/08/17 10/25/17 Rx Losartan [Cozaar] 50 mg PO DAILY 10/12/17 10/25/17 History Biotin(Dose Unknown) 1 tab PO DAILY 10/23/17 10/25/17 History Multivitamins, Thera [Multivitamin 1 tab PO DAILY 10/23/17 10/25/17 History (formulary)] Simvastatin [Zocor] 40 mg PO HS 10/23/17 10/25/17 History Allergies Allergy/AdvReac Type Severity Reaction Status Date / Time No Known Allergies Allergy Verified 10/25/17 08:56 Surgical - Exam Vital Signs Temp Pulse Resp BP Pulse Ox 97.6 F 90 16 161/74 97 10/25/17 09:00 10/25/17 09:00 10/25/17 09:00 10/25/17 09:00 10/25/17 09:00 Results - Labs Abnormal Lab Results - Last 24 Hours (Table) 10/25/17 Range/Units 09:10 POC Glucose (mg/dL) 161 H (75-99) mg/dL
--- NOTE | 2017-10-25 09:43 | P.PCN ---
Date of Procedure: 10/25/17 Description of Procedure: PREOPERATIVE DIAGNOSIS: Gastroesophageal reflux disease. Morbid obesity. POSTOPERATIVE DIAGNOSIS: Morbid obesity. Gastritis. Gastroesophageal reflux disease. Diaphragmatic hiatal hernia without obstruction. OPERATION: Esophagogastroduodenoscopy with biopsies along antrum. SURGEON: Cinda Sosa MD ANESTHESIA: MAC. INDICATIONS: The patient is a 72-year-old female who presents with a history of reflux disease. Benefits and risks of the procedure were described. Informed consent was obtained. DESCRIPTION: The patient was brought into the endoscopy suite and laid in the left lateral decubitus position. An Olympus gastroscope was passed along the posterior oropharynx down to the distal esophagus where the squamocolumnar junction was encountered at 37 cm from the incisors. The stomach was entered and no bile reflux was found. Additional findings are listed below. Biopsies with cold forceps were obtained of the antrum. The first through third portion of the duodenum was examined and unremarkable. Retroflexion of the scope confirmed Hill grade 3 lower esophageal valve. The squamocolumnar junction demonstrated early and acute LA grade A erosive esophagitis. The stomach was desufflated. The patient tolerated the procedure well. FINDINGS: Squamocolumnar junction 37 cm from the incisors. Diaphragmatic hiatus at 39 cm. Hiatal hernia 2 cm. Hill grade 3 lower esophageal valve. LA grade A erosive esophagitis. No active duodenitis. Mild gastritis. RECOMMENDATIONS: Upper endoscopy as needed. Plan - Discharge Summary New Discharge Prescriptions: No Action Ergocalciferol [Vitamin D2 (DRISDOL)] 50,000 unit PO QMONTH Tiotropium 18 Mcg/Puff [Spiriva] 1 puff INHALATION DAILY PRN PRN Reason: Shortness Of Breath Or Wheezing Insulin Lispro [humaLOG Kwikpen] 26 unit SQ AC-BID@1000,1600 Insulin Glargine [Lantus] 120 unit SQ HS Hydrochlorothiazide [Hydrodiuril] 25 mg PO QAM Levothyroxine Sodium [Levoxyl] 112 mcg PO QAM HYDROcodone/APAP 5-325MG [[place] 5-325] 1 tab PO DAILY PRN PRN Reason: Pain Ibuprofen [Motrin] 600 mg PO Q8HR PRN #30 tab PRN Reason: Pain Losartan [Cozaar] 50 mg PO DAILY Multivitamins, Thera [Multivitamin (formulary)] 1 tab PO DAILY Biotin(Dose Unknown) 1 tab PO DAILY Simvastatin [Zocor] 40 mg PO HS Discharge Medication List Ergocalciferol [Vitamin D2 (DRISDOL)] 50,000 unit PO QMONTH 11/23/15 [History] Tiotropium 18 Mcg/Puff [Spiriva] 1 puff INHALATION DAILY PRN 11/23/15 [History] Hydrochlorothiazide [Hydrodiuril] 25 mg PO QAM 04/17/17 [History] Insulin Glargine [Lantus] 120 unit SQ HS 04/17/17 [History] Insulin Lispro [humaLOG Kwikpen] 26 unit SQ AC-BID@1000,1600 04/17/17 [History] Levothyroxine Sodium [Levoxyl] 112 mcg PO QAM 05/24/17 [History] HYDROcodone/APAP 5-325MG [[place] 5-325] 1 tab PO DAILY PRN 06/01/17 [History] Ibuprofen [Motrin] 600 mg PO Q8HR PRN #30 tab 06/08/17 [Rx] Losartan [Cozaar] 50 mg PO DAILY 10/12/17 [History] Biotin(Dose Unknown) 1 tab PO DAILY 10/23/17 [History] Multivitamins, Thera [Multivitamin (formulary)] 1 tab PO DAILY 10/23/17 [History ] Simvastatin [Zocor] 40 mg PO HS 10/23/17 [History] Follow up Appointment(s)/Referral(s): [facility] [NON-STAFF] - 11/22/17 Patient Instructions/Handouts: Hiatal Hernia (GEN) Discharge Disposition: HOME SELF-CARE
[2017-10-25 10:16] VITALS: BP 142/79; PULSE 68
== END 2017-10-25 10:43 | disposition home or self-care (01) ==
LOC: ORWHC2ENDO 08:27
PROVIDERS: ATTEND Surgery Plastic and Reconstructive Surgery
DX: K31.9 Disease of stomach and duodenum, unspecified (principal); K29.70 Gastritis, unspecified, without bleeding; E66.01 Morbid (severe) obesity due to excess calories; Z68.38 Body mass index [BMI] 38.0-38.9, adult; K21.0 Gastro-esophageal reflux disease with esophagitis; K22.10 Ulcer of esophagus without bleeding; K44.9 Diaphragmatic hernia without obstruction or gangrene; E11.9 Type 2 diabetes mellitus without complications; E78.5 Hyperlipidemia, unspecified; I10 Essential (primary) hypertension; E07.9 Disorder of thyroid, unspecified; M54.30 Sciatica, unspecified side; Z90.49 Acquired absence of other specified parts of digestive tract; Z90.710 Acquired absence of both cervix and uterus; Z95.0 Presence of cardiac pacemaker; Z79.890 Hormone replacement therapy; Z79.4 Long term (current) use of insulin; Z79.899 Other long term (current) drug therapy; Z79.891 Long term (current) use of opiate analgesic
CPT/HCPCS: 43239; J2704; 88305

== ENCOUNTER → 2017-11-22 | Outpatient (CLI) | payer MEDICARE, OTHER ==
[2017-11-22 14:12] VITALS: BP 145/83; PULSE 91; RESP 16; TEMP 97.7; BMI 38.4
--- NOTE | 2017-11-22 14:37 | P.PN ---
Subjective Progress Note Date: 11/22/17 DATE OF SERVICE: 11/22/2017 CHIEF COMPLAINT: Bariatric evaluation. HISTORY OF PRESENT ILLNESS: Linh Cervantes is a 72-year-old female who comes in with long-standing morbid obesity. She denies any heartburn or reflux. She is still pending psychiatric assessment and a letter from her PCP. As a result of her morbid obesity, she developed hypertensive heart disease and diabetes type 2. At height of 5 feet 3 inches, her ideal body weight is 140 pounds. She comes in with 217 pounds from 211 pounds, 3 months ago. She has gained 6 pounds. Her body mass index is 37.4. She is 71 pounds overweight. PAST MEDICAL HISTORY: 1. Morbid obesity due to excess caloried 2. Body mass index of 37.4 3. Osteoarthritis of the knees. 4. Osteoarthritis of the hips. 5. Osteoarthritis of the lower back. 6. Obstructive sleep apnea. 7. Hypertensive heart disease. 8. Chronic obstructive pulmonary disease 9. Diabetes type 2, insulin-dependent 10. Hypothyroidism 11. Gastroesophageal reflux disease 12. Sciatica PAST SURGICAL HISTORY: 1. Cholecystectomy. 2. Hysterectomy 3. Ventral hernia repair 4. Sigmoid resection HOME MEDICATIONS: 1. Hydrochlorothiazide. 2. Spiriva 3. Victoza 4. Levothyroxin 5. Insulin lispro 6. Insulin glargine 7. Motrin 8. Losartan 9. [place] 10. Vitamin D ALLERGIES: Denies. SOCIAL HISTORY: No tobacco use. FAMILY HISTORY: No family history of ulcerative colitis disease or Crohn's disease. Family history of morbid obesity. No lupus in the family. No reports of stomach or esophageal cancer. Family history of diabetes type 2. REVIEW OF ORGAN SYSTEMS: CONSTITUTIONAL: At height of 5 feet 3 inches, her ideal body weight is 140 pounds. She comes in with 217 pounds from 211 pounds, 3 months ago. She has gained 6 pounds. Her body mass index is 37.4. She is 71 pounds overweight. HEENT: Denies any active troubles with vision or hearing. No troubles with swallowing. ENDOCRINE: Has diabetes. Has hypothyroidism. CARDIOVASCULAR: No reports of palpitations or heart attacks or chest pain. RESPIRATORY: Has daytime somnolence. Has asthma. GI: Denies any bright red blood per rectum. No diarrhea or constipation. MUSCULOSKELETAL: Has lower back pain and joint pain. Has osteoarthritis of the knees. NEURO: No headaches. No seizure disorders. PSYCH: No depression or suicidal ideation. RHEUMATOLOGIC: No lupus. No rheumatoid arthritis. HEMATOLOGIC: Denies any abnormal bleeding or bruising. No personal history of DVTs. SKIN: No rash. No skin cancer. PHYSICAL EXAM: VITAL SIGNS: Height 5 foot 3 inches, weight 217 pounds. BMI 38.4 Vital Signs Temp 97.7 F 11/22/17 14:10 Pulse 91 11/22/17 14:10 Resp 16 11/22/17 14:10 BP 145/83 11/22/17 14:10 Pulse Ox GENERAL: Well-developed in no acute distress. HEENT: No scleral icterus. Extraocular movements grossly intact. Hears conversational speech. No nasal drainage. NECK: Supple without lymphadenopathy. CHEST: Nonlabored respirations with equal bilateral excursions. CARDIOVASCULAR: Regular rate and regular rhythm. Distal 2+ pulses. ABDOMEN: No recurrent abdominal wall hernia. MUSCULOSKELETAL: No clubbing, cyanosis. Gross strength 5/5 distal lower extremities. NEURO: No focal or lateralizing signs. Cranial nerves 2 through 12 grossly within normal limits. PSYCH: Appropriate affect. Alert and oriented to person, place and time. SKIN: Good skin turgor. Well perfused. ASSESSMENT: 1. Morbid obesity due to excess caloried 2. Body mass index of 38.4 3. Osteoarthritis of the knees. 4. Osteoarthritis of the hips. 5. Osteoarthritis of the lower back. 6. Obstructive sleep apnea. 7. Hypertensive heart disease. 8. Chronic obstructive pulmonary disease 9. Diabetes type 2, insulin-dependent 10. Hypothyroidism 11. Gastroesophageal reflux disease 12. Sciatica PLAN: 1. She is looking in the sleeve versus gastric bypass. Her main concern is to resolve her diabetes. 2. Recommend upper endoscopy 3. Recommend bariatric labs Objective - Vital Signs Vital signs: Vital Signs Temp 97.7 F 11/22/17 14:10 Pulse 91 11/22/17 14:10 Resp 16 11/22/17 14:10 BP 145/83 11/22/17 14:10 Pulse Ox Intake & Output 11/21/17 11/22/17 11/22/17 18:59 06:59 18:59 Weight 98.43 kg
== END | disposition home or self-care (01) ==
LOC: BARWHC3 13:35
PROVIDERS: ATTEND Surgery Plastic and Reconstructive Surgery
DX: E66.01 Morbid (severe) obesity due to excess calories (principal); M17.0 Bilateral primary osteoarthritis of knee; M16.0 Bilateral primary osteoarthritis of hip; M47.816 Spondylosis without myelopathy or radiculopathy, lumbar region; G47.33 Obstructive sleep apnea (adult) (pediatric); I11.9 Hypertensive heart disease without heart failure; J44.9 Chronic obstructive pulmonary disease, unspecified; E11.9 Type 2 diabetes mellitus without complications; Z79.4 Long term (current) use of insulin; E03.9 Hypothyroidism, unspecified; K21.9 Gastro-esophageal reflux disease without esophagitis; Z68.38 Body mass index [BMI] 38.0-38.9, adult; Z79.899 Other long term (current) drug therapy; Z79.1 Long term (current) use of non-steroidal anti-inflammatories (NSAID); Z79.891 Long term (current) use of opiate analgesic; Z90.49 Acquired absence of other specified parts of digestive tract; Z90.710 Acquired absence of both cervix and uterus; Z98.890 Other specified postprocedural states
CPT/HCPCS: 99211

== ENCOUNTER → 2017-12-11 | Outpatient (CLI) | payer MEDICARE, OTHER ==
[2017-12-11 14:09] VITALS: BMI 38.0
== END | disposition home or self-care (01) ==
LOC: BARWHC3 08:26
PROVIDERS: ATTEND Surgery Plastic and Reconstructive Surgery
DX: E66.01 Morbid (severe) obesity due to excess calories (principal); Z71.3 Dietary counseling and surveillance; Z68.38 Body mass index [BMI] 38.0-38.9, adult
CPT/HCPCS: 97804

== ENCOUNTER 2018-03-20 13:15 | Emergency (ER) | payer MEDICARE, OTHER ==
[2018-03-20 13:30] VITALS: RESP 18
[2018-03-20] MEDS ORDERED: IPRATROPIUM-ALBUTEROL 3 ML NEB INHALATION STA (13:53)
--- NOTE | 2018-03-20 14:10 | ED ---
URI HPI - General Chief Complaint: Upper Respiratory Infection Stated Complaint: Poss flu or cold Time Seen by Provider: 03/20/18 13:48 Source: patient, RN notes reviewed Mode of arrival: wheelchair Limitations: no limitations - History of Present Illness Initial Comments: 73-year-old female presents emergency department tingling cough congestion. Patient states she has been sick for last 4-5 days with a cold. Patient states that she just wants to be checked out secondary to no improvement with over-the- counter medications. Denies any chest pain, headache or dizziness. She has minimal to mild nasal congestion and productive cough at times. She states that she is a nonsmoker no former history of smoking she's been told that she has some underlying COPD. Patient states that she had low-grade temps at home no recent Tylenol Motrin. Patient denies ear pain, nausea, vomiting, diarrhea, constipation. - Related Data Home Medications Medication Instructions Recorded Confirmed Ergocalciferol [Vitamin D2 50,000 unit PO QMONTH 11/23/15 12/11/17 (DRISDOL)] Tiotropium 18 Mcg/Puff [Spiriva] 1 puff INHALATION DAILY PRN 11/23/15 12/11/17 Hydrochlorothiazide [Hydrodiuril] 25 mg PO QAM 04/17/17 12/11/17 Insulin Glargine [Lantus] 120 unit SQ HS 04/17/17 12/11/17 Insulin Lispro [humaLOG Kwikpen] 26 unit SQ AC-BID@1000,1600 04/17/17 12/11/17 Levothyroxine Sodium [Levoxyl] 112 mcg PO QAM 05/24/17 12/11/17 HYDROcodone/APAP 5-325MG [[place] 1 tab PO DAILY PRN 06/01/17 12/11/17 5-325] Losartan [Cozaar] 50 mg PO DAILY 10/12/17 12/11/17 Biotin(Dose Unknown) 1 tab PO DAILY 10/23/17 12/11/17 Multivitamins, Thera [Multivitamin 1 tab PO DAILY 10/23/17 12/11/17 (formulary)] Simvastatin [Zocor] 40 mg PO HS 10/23/17 12/11/17 Previous Rx's Medication Instructions Recorded Albuterol Sulfate [Proair Hfa] 1 - 2 puff INHALATION Q4HR PRN #1 03/20/18 inhaler Azithromycin [Zithromax Z-pack] 0 mg PO DIRECTED #1 pack 03/20/18 predniSONE 50 mg PO DAILY #4 tab 03/20/18 Allergies Allergy/AdvReac Type Severity Reaction Status Date / Time No Known Allergies Allergy Verified 03/20/18 13:30 Review of Systems ROS Statement: Those systems with pertinent positive or pertinent negative responses have been documented in the HPI. ROS Other: All systems not noted in ROS Statement are negative. Past Medical History Past Medical History: Diabetes Mellitus, GERD/Reflux, Hypertension, Thyroid Disorder Additional Past Medical History / Comment(s): EC VISIT ON 04/17/17, RIGHT FACIAL INJURY, NO FX. Sciatica. Hernia History of Any Multi-Drug Resistant Organisms: None Reported Past Surgical History: Bowel Resection, Cholecystectomy, Hysterectomy, Pacemaker Additional Past Surgical History / Comment(s): "repair of bowel from colonoscopy " Past Anesthesia/Blood Transfusion Reactions: No Reported Reaction Past Psychological History: No Psychological Hx Reported Smoking Status: Never smoker Past Alcohol Use History: None Reported Past Drug Use History: None Reported - Past Family History Mother Family Medical History: No Reported History General Exam Limitations: no limitations General appearance: alert, in no apparent distress Head exam: Present: atraumatic, normocephalic, normal inspection Eye exam: Present: normal appearance, PERRL, EOMI. Absent: scleral icterus, conjunctival injection, periorbital swelling ENT exam: Present: normal exam, normal oropharynx, mucous membranes moist, TM's normal bilaterally Neck exam: Present: normal inspection, full ROM. Absent: tenderness, meningismus, lymphadenopathy Respiratory exam: Present: wheezes. Absent: normal lung sounds bilaterally, respiratory distress, rales, rhonchi, stridor Cardiovascular Exam: Present: regular rate, normal rhythm, normal heart sounds. Absent: systolic murmur, diastolic murmur, rubs, gallop, clicks Course Vital Signs 03/20/18 03/20/18 03/20/18 13:27 14:20 14:35 Temperature 98.0 F Pulse Rate 65 68 76 Respiratory 18 Rate Blood Pressure 136/63 O2 Sat by Pulse 96 Oximetry Medical Decision Making - Medical Decision Making 73-year-old female presents emergency from for cough congestion. Chest x-ray obtained no acute abnormality. Patient also had influenza testing which was negative. Patient had DuoNeb treatment which has improved lung sounds and she states that she feels better. Patient discharged with pro-air, azithromycin, prednisone. Patient will follow-up with Dr. Shine tomorrow return for any worsening symptoms. She was offered admission but states that she'll prefer to go home at this time. - Lab Data Lab Results 03/20/18 Range/Units 14:09 Influenza Type A RNA Not Detected (Not Detectd) Influenza Type B (PCR) Not Detected (Not Detectd) Disposition Clinical Impression: COPD (chronic obstructive pulmonary disease), Upper respiratory infection Disposition: HOME SELF-CARE Condition: Stable Additional Instructions: Please return to the Emergency Department if symptoms worsen or any other concerns. Please monitor blood sugars closely as steroids may increased blood sugar. Prescriptions: Albuterol Sulfate [Proair Hfa] 1 - 2 puff INHALATION Q4HR PRN #1 inhaler PRN Reason: difficulty in breathing Azithromycin [Zithromax Z-pack] 0 mg PO DIRECTED #1 pack predniSONE 50 mg PO DAILY #4 tab Is patient prescribed a controlled substance at d/c from ED?: No Referrals: Bryan Shine DO [Primary Care Provider] - 1-2 days Time of Disposition: 15:02
--- NOTE | 2018-03-20 14:34 | XR ---
EXAMINATION TYPE: XR chest 2V DATE OF EXAM: 03/20/2018 COMPARISON: Prior chest x-ray 10/13/2017 HISTORY: Cough and congestion TECHNIQUE: Frontal and lateral views of the chest are obtained. FINDINGS: Patient is rotated. Pacemaker is stable. There is a pectus deformity present. There is no f ocal air space opacity, pleural effusion, or pneumothorax seen. The cardiac silhouette size is stabl e, borderline enlarged. The osseous structures are intact. IMPRESSION: No acute cardiopulmonary process.
[2018-03-20 14:35] VITALS: PULSE 76
[2018-03-20] MEDS ORDERED: methylPREDNISolone SOD SUCCI 125 MG/2 ML VIAL IM ONE (15:00)
[2018-03-20 15:21] VITALS: BP 140/72; TEMP 97.9
== END 2018-03-20 15:20 | disposition home or self-care (01) ==
LOC: EC 13:15
DX: J44.9 Chronic obstructive pulmonary disease, unspecified (principal); J06.9 Acute upper respiratory infection, unspecified; E11.9 Type 2 diabetes mellitus without complications; K21.9 Gastro-esophageal reflux disease without esophagitis; I10 Essential (primary) hypertension; E07.9 Disorder of thyroid, unspecified; Z79.4 Long term (current) use of insulin; Z79.899 Other long term (current) drug therapy; Z95.0 Presence of cardiac pacemaker
CPT/HCPCS: 94640; 87502; 71046; 99284; 96372; J2930

== ENCOUNTER 2018-05-05 18:25 | Observation (INO) | payer MEDICARE, OTHER ==
[2018-05-05] MEDS ORDERED: MORPHINE SULFATE 2 MG/ML SYRINGE IVP STA (19:04)
[2018-05-05] MEDS ORDERED: SODIUM CHLORIDE 0.9% 500 ML 500 ML IV STA (19:04)
[2018-05-05] MEDS ORDERED: ONDANSETRON 4 MG/2 ML VIAL IVP STA (19:04)
--- NOTE | 2018-05-05 19:11 | ED ---
Chest Pain HPI - General Chief Complaint: Chest Pain Stated Complaint: Chest pain Time Seen by Provider: 05/05/18 18:49 Source: patient Mode of arrival: wheelchair Limitations: no limitations - History of Present Illness Initial Comments: 73-year-old female patient presents to the emergency department today for evaluation of left sided chest pain beneath the left breast. Patient states this started around 4:30 this afternoon. Patient states the pain is sharp and stabbing at times. Patient denies any nausea or vomiting with this. Denies any sweats. States the pain does radiate into the left shoulder. Denies any radiation in to the neck or jaw. States that she does feel short of breath occasionally. States she's had a dry cough for the last couple of weeks. Denies any sputum production or hemoptysis. She does have history of diabetes, hypertension, hyperlipidemia. No personal history of CAD but does have a pacemaker. States that she did have umbilical hernia surgery in January, states she has another hernia she is unsure if this is related to her pain. She denies any difficulty with bowel movements, urination, or lower abdominal pain. Patient denies any recent rash, shortness breath, chest pain, diarrhea, constipation, back pain, numbness, tingling, dizziness, weakness, hematuria, dysuria, urinary urgency, urinary frequency, headache, visual changes, or any other complaints. - Related Data Home Medications Medication Instructions Recorded Confirmed Tiotropium 18 Mcg/Puff [Spiriva] 1 puff INHALATION RT-DAILY PRN 11/23/15 Hydrochlorothiazide [Hydrodiuril] 25 mg PO QAM 04/17/17 05/05/18 Insulin Glargine [Lantus] 120 unit SQ HS 04/17/17 05/05/18 Insulin Lispro [humaLOG Kwikpen] 26 unit SQ AC-BID@1000,1600 04/17/17 05/05/18 Levothyroxine Sodium [Levoxyl] 112 mcg PO QAM 05/24/17 05/05/18 HYDROcodone/APAP 5-325MG [[place] 1 tab PO DAILY PRN 06/01/17 05/05/18 5-325] Losartan [Cozaar] 50 mg PO DAILY 10/12/17 05/05/18 Multivitamins, Thera [Multivitamin 1 tab PO DAILY 10/23/17 05/05/18 (formulary)] Simvastatin [Zocor] 40 mg PO HS 10/23/17 05/05/18 Albuterol Sulfate [Proair Hfa] 2 puff INHALATION RT-Q4H PRN 05/05/18 05/05/18 Liraglutide [Victoza 2-Stepan] 1.8 mg SQ DAILY 05/05/18 05/05/18 Metoprolol Succinate (ER) [Toprol 50 mg PO DAILY 05/05/18 05/05/18 Xl] Allergies Allergy/AdvReac Type Severity Reaction Status Date / Time No Known Allergies Allergy Verified 05/05/18 19:59 Review of Systems ROS Statement: Those systems with pertinent positive or pertinent negative responses have been documented in the HPI. ROS Other: All systems not noted in ROS Statement are negative. EKG Findings - EKG Comments: EKG Findings:: EKG obtained at 1859 shows atrial sensed ventricular paced rhythm , ventricular rate is 80, CT interval 192, QRS duration 164, QTC 450, QTC 519. No evidence of ST elevation or depression. Past Medical History Past Medical History: Diabetes Mellitus, GERD/Reflux, Hypertension, Thyroid Disorder Additional Past Medical History / Comment(s): EC VISIT ON 04/17/17, RIGHT FACIAL INJURY, NO FX. Sciatica. Hernia History of Any Multi-Drug Resistant Organisms: None Reported Past Surgical History: Bowel Resection, Cholecystectomy, Hysterectomy, Pacemaker Additional Past Surgical History / Comment(s): "repair of bowel from colonoscopy " Past Anesthesia/Blood Transfusion Reactions: No Reported Reaction Past Psychological History: No Psychological Hx Reported Smoking Status: Never smoker Past Alcohol Use History: None Reported Past Drug Use History: None Reported - Past Family History Mother Family Medical History: No Reported History General Exam Limitations: no limitations General appearance: alert, in no apparent distress, other (Physical well- developed, well-nourished adult female patient in no acute distress. Vital signs upon presentation are temperature 97.7F, pulse 79, respirations 18, blood pressure 147/84, pulse ox 98% on room air.) Eye exam: Present: normal appearance, PERRL, EOMI. Absent: scleral icterus, conjunctival injection, periorbital swelling ENT exam: Present: normal exam, normal oropharynx, mucous membranes moist Respiratory exam: Present: normal lung sounds bilaterally. Absent: respiratory distress, wheezes, rales, rhonchi, stridor Cardiovascular Exam: Present: regular rate, normal rhythm, normal heart sounds. Absent: systolic murmur, diastolic murmur, rubs, gallop, clicks GI/Abdominal exam: Present: soft, tenderness (Lower abdominal tenderness), normal bowel sounds. Absent: distended, guarding, rebound, rigid Neurological exam: Present: alert, oriented X3, CN II-XII intact Psychiatric exam: Present: normal affect, normal mood Skin exam: Present: warm, dry, intact, normal color. Absent: rash Course Vital Signs 05/05/18 05/05/18 18:33 18:53 Temperature 97.7 F Pulse Rate 79 Pulse Rate [ 88 Enterprise [employer] ] Respiratory 18 Rate Blood Pressure 147/84 O2 Sat by Pulse 98 Oximetry Chest Pain MDM - [facility] RADIOLOGY: Two-view x-ray of the chest is obtained. Report was reviewed in its entirety. Impression by Dr. Stone shows no acute cardio pulmonary process. No significant interval change CT angio of the chest was obtained. Report was reviewed in its entirety. Impression by Dr. Stone shows no pulmonary embolism. Cardiomegaly. Multilevel degenerative changes of the spine MDM: 73-year-old female patient presents to the emergency department today for evaluation of left-sided chest pain. She reported a sharp in nature and did increase with deep breathing. Abdomen was soft and nontender. Labs reviewed and did reveal elevated d-dimer at 1.09. We did obtain CT angiography of the chest which was negative for pulmonary embolism or any other acute findings. Chest x-ray was unremarkable. Initial set are cardiac labs were negative. Patient will be admitted to the hospital for evaluation by cardiology. We'll repeat troponins. Did discuss findings, results, plan with the patient. She is agreeable. Disposition Clinical Impression: Chest pain Disposition: ADMITTED IP TO THIS [facility] Condition: Serious Referrals: Bryan Shine DO [Primary Care Provider] - 1-2 days Decision to Admit Reason: Admit from EC Decision Date: 05/05/18 Decision Time: 22:19
[2018-05-05 19:42] LABS: Basophils # (A) 0.1 k/uL (0-0.2); Basophils % (A) 1 %; Eosinophils # (A) 0.4 k/uL (0-0.7); Eosinophils % (A) 4 %; HGB 14.7 gm/dL (11.4-16.0); Lymphocytes # (A) 2.6 k/uL (1.0-4.8); Lymphocytes % (A) 24 %; MCH 29.9 pg (25.0-35.0); MCHC 33.4 g/dL (31.0-37.0); MCV 89.6 fL (80.0-100.0); Mean Platelet Volume 6.2; Monocytes # (A) 0.4 k/uL (0-1.0); Monocytes % (A) 4 %; Neutrophils # (A) 7.2 k/uL (1.3-7.7); Neutrophils % (A) 66 %; Platelet Count 255 k/uL (150-450); RBC 4.91 m/uL (3.80-5.40); RDW 14.9 % (11.5-15.5); WBC 10.9 k/uL (3.8-10.6)
[2018-05-05 19:52] LABS: Albumin 3.7 g/dL (3.5-5.0); Calcium 10.1 mg/dL (8.4-10.2); Magnesium 1.4 mg/dL (1.6-2.3); Total Bilirubin 0.5 mg/dL (0.2-1.3); Total Protein 6.4 g/dL (6.3-8.2)
[2018-05-05 19:56] LABS: INR 0.9 (<1.2); Partial Thromboplastin Time 24.5 sec (22.0-30.0); Prothrombin Time 9.9 sec (9.0-12.0)
[2018-05-05 20:00] LABS: D-Dimer 1.09 mg/L FEU (<0.60)
--- NOTE | 2018-05-05 20:08 | XR ---
EXAMINATION TYPE: XR chest 2V DATE OF EXAM: 05/05/2018 COMPARISON: Chest radiograph 03/20/2018 HISTORY: Left-sided chest pain TECHNIQUE: Frontal and lateral views of the chest are obtained. FINDINGS: There is no focal air space opacity, pleural effusion, or pneumothorax seen. The cardiac silhouette size is unchanged. Dual-lead cardiac conduction device is evident. The osseous structures are intact. IMPRESSION: No acute cardiopulmonary process. No significant interval change.
--- NOTE | 2018-05-05 21:16 | CT ---
EXAMINATION TYPE: CT chest angio for PE DATE OF EXAM: 05/05/2018 COMPARISON: NONE HISTORY: left side chest pain CT DLP: 419.9 mGycm. Automated Exposure Control for Dose Reduction was Utilized. CONTRAST: CTA scan of the thorax is performed with IV Contrast, patient injected with 100 mL of Isovue 370, pul monary embolism protocol. MIP Images are created on CT scanner and reviewed. FINDINGS: LUNGS: The lungs are grossly clear, there is no concerning parenchymal mass or nodule identified. T here is no pleural effusion or pneumothorax seen. The tracheobronchial tree is patent. MEDIASTINUM: There is satisfactory enhancement of the pulmonary artery and its branches, there is no CT evidence for pulmonary embolism. There are no greater than 1 cm hilar or mediastinal lymph nodes. No cardiomegaly or pericardial effusion is seen. The heart is enlarged. OTHER: Multilevel degenerative changes are seen of the spine and shoulders. Limited examination of th e upper abdomen is unremarkable. IMPRESSION: 1. No pulmonary embolism. 2. Cardiomegaly. 3. Multilevel degenerative changes of the spine.
[2018-05-05] MEDS ORDERED: NALOXONE 0.4 MG/ML 1 ML VIAL IV PRN (22:13)
[2018-05-05] MEDS ORDERED: ONDANSETRON 4 MG/2 ML VIAL IVP PRN (22:13)
[2018-05-05 23:44] VITALS: BMI 36.6
[2018-05-06] MEDS: MORPHINE SULFATE 4 MG/ML SYRINGE IV PRN ×2 (00:08→09:44)
[2018-05-06 00:16] LABS: Glucose,Whole Blood 128 mg/dL (75-99)
[2018-05-06 07:56] LABS: Glucose,Whole Blood 138 mg/dL (75-99)
--- NOTE | 2018-05-06 09:25 | P.CRDCN ---
History of Present Illness Consult date: 05/06/18 Requesting physician: Evangelina Armstrong Consult reason: chest pain Chief complaint: Chest pain History of present illness: This is a 73-year-old female who follows regularly with Dr. Bahena in the office. She has a known history of diabetes, hypertension, hyperlipidemia, history of complete heart block with prior pacemaker implantation in 2018. She presented to the hospital initially with symptoms of abdominal discomfort, she had been told to have an abdominal umbilical hernia, she states that she was having significant pain in that area. Subsequent to that she noticed a sharp stabbing pain underneath her left breast, she states she noticed some stabbing poking pains in her left shoulder at times as well. She denies any prior documented history of coronary artery disease although she states that she had an echo and stress test performed within the past few months in the office. Chest x-ray on admission did not reveal any acute cardiopulmonary process. CTA of the chest was performed which did not reveal any evidence of a pulmonary embolism. EKG on admission here showed atrial sensed V paced rhythm. Underlying normal sinus rhythm. Blood pressure 132/70 with a heart rate in the 70s, 96% on room air. Temperature 98.4. White blood cell count 10.9, hemoglobin 14.7, platelet count 255. D-dimer 1.09. Sodium 143, potassium 4.0, BUN 17 and creatinine 0.8. Troponins are negative 3. At the time of my examination this morning, patient denies any chest discomfort. Past Medical History Past Medical History: Diabetes Mellitus, GERD/Reflux, Hypertension, Thyroid Disorder Additional Past Medical History / Comment(s): EC VISIT ON 04/17/17, RIGHT FACIAL INJURY, NO FX. Sciatica. Hernia History of Any Multi-Drug Resistant Organisms: None Reported Past Surgical History: Bowel Resection, Cholecystectomy, Hysterectomy, Pacemaker Additional Past Surgical History / Comment(s): "repair of bowel from colonoscopy " Past Anesthesia/Blood Transfusion Reactions: No Reported Reaction Type of Cardiac Device: Permanent Pacemaker Device Placement Date:: 2017 Past Psychological History: No Psychological Hx Reported Smoking Status: Never smoker Past Alcohol Use History: None Reported Past Drug Use History: None Reported - Past Family History Mother Family Medical History: No Reported History Medications and Allergies Home Medications Medication Instructions Recorded Confirmed Type Tiotropium 18 Mcg/Puff [Spiriva] 1 puff INHALATION RT-DAILY PRN 11/23/15 History Hydrochlorothiazide [Hydrodiuril] 25 mg PO QAM 04/17/17 05/05/18 History Insulin Glargine [Lantus] 120 unit SQ HS 04/17/17 05/05/18 History Insulin Lispro [humaLOG Kwikpen] 26 unit SQ AC-BID@1000,1600 04/17/17 05/05/18 History Levothyroxine Sodium [Levoxyl] 112 mcg PO QAM 05/24/17 05/05/18 History HYDROcodone/APAP 5-325MG [[place] 1 tab PO DAILY PRN 06/01/17 05/05/18 History 5-325] Losartan [Cozaar] 50 mg PO DAILY 10/12/17 05/05/18 History Multivitamins, Thera [Multivitamin 1 tab PO DAILY 10/23/17 05/05/18 History (formulary)] Simvastatin [Zocor] 40 mg PO HS 10/23/17 05/05/18 History Albuterol Sulfate [Proair Hfa] 2 puff INHALATION RT-Q4H PRN 05/05/18 05/05/18 History Liraglutide [Victoza 2-Stepan] 1.8 mg SQ DAILY 05/05/18 05/05/18 History Metoprolol Succinate (ER) [Toprol 50 mg PO DAILY 05/05/18 05/05/18 History Xl] Allergies Allergy/AdvReac Type Severity Reaction Status Date / Time No Known Allergies Allergy Verified 05/05/18 19:59 Physical Exam Vitals: Vital Signs Temp Pulse Pulse Resp BP BP Pulse Ox 05/06/18 08:00 98.4 F 71 18 133/76 96 05/06/18 04:00 98.3 F 75 15 132/70 95 05/05/18 23:28 98.2 F 70 15 129/67 94 L 05/05/18 22:25 63 20 134/74 96 05/05/18 18:53 88 05/05/18 18:33 97.7 F 79 18 147/84 98 Intake and Output 05/05/18 05/06/18 05/06/18 22:59 06:59 14:59 Intake Total 500 Balance 500 Intake: Amount of Fluid Infused ( 500 ml) Other: # Voids 1 1 Weight 90.718 kg 88 kg PHYSICAL EXAMINATION: GENERAL: 73-year-old female in no acute distress at the time of my examination HEENT: Head is atraumatic, normocephalic. Pupils equal, round. Sclera anicteric. Conjunctiva are clear. Mucous membranes of the mouth are moist. Neck is supple. There is no elevated jugular venous pressure. No carotid bruit is heard. HEART EXAMINATION: Heart S1, S2 normal. No murmur or gallop heard. CHEST EXAMINATION: Lungs are clear to auscultation and precussion. No chest wall tenderness is noted on palpation or with deep breathing. ABDOMEN: Soft, mild tenderness noted on palpation of the umbilicus area. Bowel sounds are heard. No organomegaly noted. EXTREMITIES: 2+ peripheral pulses with no evidence of peripheral edema and no calf tenderness noted. NEUROLOGIC patient is awake, alert and oriented 3 . . Results 05/05/18 19:05/05/18 19: Cardiac Enzymes 05/05/18 05/05/18 05/06/18 Range/Units 19:28 19: 01:10 AST 20 (14-36) U/L Troponin I <0.012 <0.012 (0.000-0.034) ng/mL 05/06/18 Range/Units 06:50 AST (14-36) U/L Troponin I <0.012 (0.000-0.034) ng/mL Coagulation 05/05/18 Range/Units 19:28 PT 9.9 (9.0-12.0) sec APTT 24.5 (22.0-30.0) sec CBC 05/05/18 Range/Units 19:28 WBC 10.9 H (3.8-10.6) k/uL RBC 4.91 (3.80-5.40) m/uL Hgb 14.7 (11.4-16.0) gm/dL Hct 44.0 (34.0-46.0) % Plt Count 255 (150-450) k/uL Comprehensive Metabolic Panel 05/05/18 Range/Units 19:28 Sodium 143 (137-145) mmol/L Potassium 4.0 (3.5-5.1) mmol/L Chloride 104 (98-107) mmol/L Carbon Dioxide 30 (22-30) mmol/L BUN 17 (7-17) mg/dL Creatinine 0.86 (0.52-1.04) mg/dL Glucose 147 H (74-99) mg/dL Calcium 10.1 (8.4-10.2) mg/dL AST 20 (14-36) U/L ALT 26 (9-52) U/L Alkaline Phosphatase 90 (38-126) U/L Total Protein 6.4 (6.3-8.2) g/dL Albumin 3.7 (3.5-5.0) g/dL Current Medications Generic Name Dose Route Start Last Admin Trade Name Freq PRN Reason Stop Dose Admin Morphine Sulfate 4 mg 05/05/18 22:13 05/06/18 00:08 Morphine Sulfate (Inj) IV 4 mg Q4HR PRN Administration Severe Pain Naloxone HCl 0.2 mg 05/05/18 22:13 Narcan IV Q2M PRN Opioid Reversal Ondansetron HCl 4 mg 05/05/18 22:13 Zofran IVP Q8HR PRN Nausea And Vomiting Intake and Output 05/05/18 05/06/18 05/06/18 22:59 06:59 14:59 Intake Total 500 Balance 500 Intake: Amount of Fluid Infused ( 500 ml) Other: # Voids 1 1 Weight 90.718 kg 88 kg 05/05/18 19:28 05/05/18 19:28 EKG Interpretations (text) EKG shows an a sensed V paced rhythm with underlying normal sinus rhythm. No acute changes noted. Assessment and Plan Plan: Assessment and plan #1 atypical chest discomfort, troponins negative 3. EKG shows a sensed V paced rhythm with no acute changes. #2 hypertension #3 diabetes #4 hyperlipidemia #5 small umbilical hernia #6 prior pacemaker implantation for complete heart block. 7 hypothyroidism Plan According to the patient, she had a recent stress test and echocardiogram with Doppler study performed in the office within the past few months. Resume home medications which include Zocor, insulin, metoprolol, and losartan. She may be able to be discharged home from our perspective to follow-up with Dr. Bahena in the office next week. DNP note has been reviewed, I agree with a documented findings and plan of care. Patient was seen and examined.
[2018-05-06] MEDS ORDERED: METOPROLOL SUCCINATE (ER) 50 MG TAB.ER.24H PO SCH (09:30)
[2018-05-06] MEDS ORDERED: LOSARTAN 50 MG TAB PO SCH (09:30)
[2018-05-06] MEDS: MAGNESIUM SULFATE-D5W PMX 1 GM in DEXTROSE/WATER 1 100ML.BAG IVPB SCH ×2 (10:06→11:39)
[2018-05-06 10:46] LABS: Appearance,Urine Clear (Clear); Bilirubin,Urine Negative (Negative); Blood,Urine Negative (Negative); Color,Urine Yellow; Glucose,Urine (UA) Negative (Negative); Ketones,Urine Negative (Negative); Leukocyte Esterase,Urine Negative (Negative); Nitrite,Urine Negative (Negative); Protein,Urine Negative (Negative); Specific Gravity,Urine 1.034 (1.001-1.035); Urobilinogen,Urine <2.0 mg/dL (<2.0)
[2018-05-06 11:33] VITALS: BP 105/66; PULSE 65; RESP 16; TEMP 97.6
[2018-05-06 11:41] LABS: Glucose,Whole Blood 208 mg/dL (75-99)
[2018-05-06] MEDS ORDERED: INSULIN ASPART (NovoLOG) 100 UNIT/ML VIAL SQ SCH (12:30)
--- NOTE | 2018-05-06 14:06 | P.HPIM ---
History of Present Illness H&P Date: 05/06/18 Chief Complaint: chest pain 73-year-old female; history of diabetes, hypertension, hyperlipidemia , complete heart block with prior pacemaker implantation in 2018; presented to the hospital initially with symptoms of abdominal discomfort, she had been told to have an abdominal umbilical hernia, she states that she was having significant pain in that area. Subsequent to that she noticed a sharp stabbing pain underneath her left breast, she states she noticed some stabbing poking pains in her left shoulder at times as well. She denies any prior documented history of coronary artery disease although she states that she had an echo and stress test performed within the past few months in the office. Chest x-ray on admission did not reveal any acute cardiopulmonary process. CTA of the chest was performed which did not reveal any evidence of a pulmonary embolism. EKG on admission here showed atrial sensed V paced rhythm. Underlying normal sinus rhythm. Blood pressure 132/70 with a heart rate in the 70s, 96% on room air. Temperature 98.4. White blood cell count 10.9, hemoglobin 14.7, platelet count 255. D-dimer 1.09. Sodium 143, potassium 4.0, BUN 17 and creatinine 0.8. Troponins are negative 3. At the time of my examination this morning, patient denies any chest discomfort. Review of Systems Cardiovascular: Reports chest pain Past Medical History Past Medical History: Diabetes Mellitus, GERD/Reflux, Hypertension, Thyroid Disorder Additional Past Medical History / Comment(s): EC VISIT ON 04/17/17, RIGHT FACIAL INJURY, NO FX. Sciatica. Hernia History of Any Multi-Drug Resistant Organisms: None Reported Past Surgical History: Bowel Resection, Cholecystectomy, Hysterectomy, Pacemaker Additional Past Surgical History / Comment(s): "repair of bowel from colonoscopy " Past Anesthesia/Blood Transfusion Reactions: No Reported Reaction Type of Cardiac Device: Permanent Pacemaker Device Placement Date:: 2017 Past Psychological History: No Psychological Hx Reported Smoking Status: Never smoker Past Alcohol Use History: None Reported Past Drug Use History: None Reported - Past Family History Mother Family Medical History: No Reported History Medications and Allergies Home Medications Medication Instructions Recorded Confirmed Type Tiotropium 18 Mcg/Puff [Spiriva] 1 puff INHALATION RT-DAILY PRN 11/23/15 History Hydrochlorothiazide [Hydrodiuril] 25 mg PO QAM 04/17/17 05/05/18 History Insulin Glargine [Lantus] 120 unit SQ HS 04/17/17 05/05/18 History Insulin Lispro [humaLOG Kwikpen] 26 unit SQ AC-BID@1000,1600 04/17/17 05/05/18 History Levothyroxine Sodium [Levoxyl] 112 mcg PO QAM 05/24/17 05/05/18 History HYDROcodone/APAP 5-325MG [[place] 1 tab PO DAILY PRN 06/01/17 05/05/18 History 5-325] Losartan [Cozaar] 50 mg PO DAILY 10/12/17 05/05/18 History Multivitamins, Thera [Multivitamin 1 tab PO DAILY 10/23/17 05/05/18 History (formulary)] Simvastatin [Zocor] 40 mg PO HS 10/23/17 05/05/18 History Albuterol Sulfate [Proair Hfa] 2 puff INHALATION RT-Q4H PRN 05/05/18 05/05/18 History Liraglutide [Victoza 2-Stepan] 1.8 mg SQ DAILY 05/05/18 05/05/18 History Metoprolol Succinate (ER) [Toprol 50 mg PO DAILY 05/05/18 05/05/18 History XL] Allergies Allergy/AdvReac Type Severity Reaction Status Date / Time No Known Allergies Allergy Verified 05/05/18 19:59 Physical Exam Vitals: Vital Signs Temp Pulse Pulse Resp BP BP Pulse Ox 05/06/18 08:00 98.4 F 71 18 133/76 96 05/06/18 04:00 98.3 F 75 15 132/70 95 05/05/18 23:28 98.2 F 70 15 129/67 94 L 05/05/18 22:25 63 20 134/74 96 05/05/18 18:53 88 05/05/18 18:33 97.7 F 79 18 147/84 98 Intake and Output 05/05/18 05/06/18 05/06/18 22:59 06:59 14:59 Intake Total 500 Balance 500 Intake: Amount of Fluid Infused ( 500 ml) Other: # Voids 1 1 Weight 90.718 kg 88 kg GENERAL: 73-year-old female in no acute distress at the time of my examination HEENT: Head is atraumatic, normocephalic. Pupils equal, round. Sclera anicteric. Conjunctiva are clear. Mucous membranes of the mouth are moist. Neck is supple. There is no elevated jugular venous pressure. No carotid bruit is heard. HEART EXAMINATION: Heart S1, S2 normal. No murmur or gallop heard. CHEST EXAMINATION: Lungs are clear to auscultation and precussion. No chest wall tenderness is noted on palpation or with deep breathing. ABDOMEN: Soft, mild tenderness noted on palpation of the umbilicus area. Bowel sounds are heard. No organomegaly noted. EXTREMITIES: 2+ peripheral pulses with no evidence of peripheral edema and no calf tenderness noted. NEUROLOGIC patient is awake, alert and oriented 3 . Results CBC & Chem 7: 05/05/18 19:28 05/05/18 19:28 Labs: Abnormal Lab Results - Last 24 Hours (Table) 05/05/18 05/05/18 05/05/18 Range/Units 19:28 19:28 19:28 WBC 10.9 H (3.8-10.6) k/uL D-Dimer 1.09 H (<0.60) mg/L FEU Glucose 147 H (74-99) mg/dL POC Glucose (mg/dL) (75-99) mg/dL Magnesium 1.4 L (1.6-2.3) mg/dL 05/05/18 05/06/18 Range/Units 23:41 07:55 WBC (3.8-10.6) k/uL D-Dimer (<0.60) mg/L FEU Glucose (74-99) mg/dL POC Glucose (mg/dL) 128 H 138 H (75-99) mg/dL Magnesium (1.6-2.3) mg/dL Thrombosis Risk Factor Assmnt - Choose All That Apply Any of the Below Risk Factors Present?: Yes Each Factor Represents 1 point: Obesity (BMI >25) Other Risk Factors: Yes Each Risk Factor Represents 2 Points: Age 61-74 years Other congenital or acquired thrombophilia - If yes, enter type in comment: No Thrombosis Risk Factor Assessment Total Risk Factor Score: 3 Thrombosis Risk Factor Assessment Level: Moderate Risk Assessment and Plan Assessment: 1. Chest pain; history of pacemaker implantation for complete heart block - we will monitor EKG and trend troponins - We will hold off on further cardiac workup after patient seen by cardiology due to recent workup done 2. Hyperglycemia/diabetes mellitus; We will monitor Accu-Cheks every before meals and at bedtime with NovoLog sliding scale 3. Hypertension; Stable on Cozaar 50 mg daily along with metoprolol 50 mg daily 4. Hyperlipidemia; Lipitor 20 mg by mouth daily at bedtime 5. Hypothyroidism; Levothyroxine 112 MCG daily 6. DVT prophylaxis; SCDs CODE STATUS; full code
--- NOTE | 2018-05-06 14:09 | P.DS ---
Providers Date of admission: 05/05/18 21:57 Expected date of discharge: 05/06/18 Attending physician: Evangelina Armstrong MD Consults: 05/05/18 22:15 Consult Physician Routine Consulting Provider: [facility] Consult Reason/Comments: Chest Pain Do you want consulting provider notified?: Yes Primary care physician: Bryan [facility] Hospital Course: 73-year-old female; history of diabetes, hypertension, hyperlipidemia , complete heart block with prior pacemaker implantation in 2018; presented to the hospital initially with symptoms of abdominal discomfort, she had been told to have an abdominal umbilical hernia, she states that she was having significant pain in that area. Subsequent to that she noticed a sharp stabbing pain underneath her left breast, she states she noticed some stabbing poking pains in her left shoulder at times as well. She denies any prior documented history of coronary artery disease although she states that she had an echo and stress test performed within the past few months in the office. Chest x-ray on admission did not reveal any acute cardiopulmonary process. CTA of the chest was performed which did not reveal any evidence of a pulmonary embolism. EKG on admission here showed atrial sensed V paced rhythm. Underlying normal sinus rhythm. Blood pressure 132/70 with a heart rate in the 70s, 96% on room air. Temperature 98.4. White blood cell count 10.9, hemoglobin 14.7, platelet count 255. D-dimer 1.09. Sodium 143, potassium 4.0, BUN 17 and creatinine 0.8. Troponins are negative 3. At the time of my examination this morning, patient denies any chest discomfort. patient was admitted to the hospital and was ruled out for acute coronary syndrome; patient had a recent echocardiogram and stress test done at PCPs office; cardiology was consulted and was not recommended any further cardiac workup; patient advised follow-up with primary entry level drafter in about a week; patient discharged in a stable condition Patient Condition at Discharge: Serious Plan - Discharge Summary Discharge Rx Participant: Yes New Discharge Prescriptions: Continue Tiotropium 18 Mcg/Puff [Spiriva] 1 puff INHALATION RT-DAILY PRN PRN Reason: Shortness Of Breath Or Wheezing Insulin Lispro [humaLOG Kwikpen] 26 unit SQ AC-BID@1000,1600 Insulin Glargine [Lantus] 120 unit SQ HS Hydrochlorothiazide [Hydrodiuril] 25 mg PO QAM Levothyroxine Sodium [Levoxyl] 112 mcg PO QAM HYDROcodone/APAP 5-325MG [[place] 5-325] 1 tab PO DAILY PRN PRN Reason: Pain Losartan [Cozaar] 50 mg PO DAILY Multivitamins, Thera [Multivitamin (formulary)] 1 tab PO DAILY Simvastatin [Zocor] 40 mg PO HS Liraglutide [Victoza 2-Stepan] 1.8 mg SQ DAILY Metoprolol Succinate (ER) [Toprol XL] 50 mg PO DAILY Albuterol Sulfate [Proair Hfa] 2 puff INHALATION RT-Q4H PRN PRN Reason: difficulty in breathing Discharge Medication List Tiotropium 18 Mcg/Puff [Spiriva] 1 puff INHALATION RT-DAILY PRN 11/23/15 [ History] Hydrochlorothiazide [Hydrodiuril] 25 mg PO QAM 04/17/17 [History] Insulin Glargine [Lantus] 120 unit SQ HS 04/17/17 [History] Insulin Lispro [humaLOG Kwikpen] 26 unit SQ AC-BID@1000,1600 04/17/17 [History] Levothyroxine Sodium [Levoxyl] 112 mcg PO QAM 05/24/17 [History] HYDROcodone/APAP 5-325MG [[place] 5-325] 1 tab PO DAILY PRN 06/01/17 [History] Losartan [Cozaar] 50 mg PO DAILY 10/12/17 [History] Multivitamins, Thera [Multivitamin (formulary)] 1 tab PO DAILY 10/23/17 [History ] Simvastatin [Zocor] 40 mg PO HS 10/23/17 [History] Albuterol Sulfate [Proair Hfa] 2 puff INHALATION RT-Q4H PRN 05/05/18 [History] Liraglutide [Victoza 2-Stepan] 1.8 mg SQ DAILY 05/05/18 [History] Metoprolol Succinate (ER) [Toprol XL] 50 mg PO DAILY 05/05/18 [History] Follow up Appointment(s)/Referral(s): Amarjit Katz MD [STAFF PHYSICIAN] - 1 Week Bryan Shine DO [Primary Care Provider] - 1-2 days Discharge Disposition: HOME SELF-CARE
[2018-05-06] MEDS ORDERED: ATORVASTATIN 20 MG TAB PO SCH (21:00)
== END 2018-05-06 15:39 | disposition home or self-care (01) ==
LOC: EC 18:25 → 3SCARD 21:57 → 1SOBS 05-06 07:41
PROVIDERS: ADMIT Internal Medicine; ATTEND Internal Medicine
DX: R07.89 Other chest pain (principal); I11.9 Hypertensive heart disease without heart failure; K42.9 Umbilical hernia without obstruction or gangrene; R79.89 Other specified abnormal findings of blood chemistry; E78.5 Hyperlipidemia, unspecified; R06.02 Shortness of breath; R05 Cough; E11.65 Type 2 diabetes mellitus with hyperglycemia; M54.30 Sciatica, unspecified side; E03.9 Hypothyroidism, unspecified; K21.9 Gastro-esophageal reflux disease without esophagitis; E66.9 Obesity, unspecified; Z68.35 Body mass index [BMI] 35.0-35.9, adult; Z79.4 Long term (current) use of insulin; Z79.890 Hormone replacement therapy; Z79.899 Other long term (current) drug therapy; Z79.891 Long term (current) use of opiate analgesic; Z90.49 Acquired absence of other specified parts of digestive tract; Z95.0 Presence of cardiac pacemaker; Z90.710 Acquired absence of both cervix and uterus; Z87.828 Personal history of other (healed) physical injury and trauma
CPT/HCPCS: 96365; 96366; 96376; 96361; 96375; 99285; 36415; 93005; 85379; 80053; 82150; 83690; 83735 ×2; 84484 ×2; 85025; 85610; 85730; 81003; 71046; 71275; G0378 ×3; J2270 ×2; J2405 ×2; J3475; Q9967

== ENCOUNTER → 2019-05-20 | Outpatient (CLI) | payer MEDICARE, OTHER ==
[2019-05-20 16:27] LABS: HCT 45.6 % (34.0-46.0); HGB 15.3 gm/dL (11.4-16.0); MCH 29.3 pg (25.0-35.0); MCHC 33.4 g/dL (31.0-37.0); MCV 87.8 fL (80.0-100.0); Platelet Count 299 k/uL (150-450); RDW 14.1 % (11.5-15.5)
[2019-05-21 02:14] LABS: African American GFR (CKD) 72.5 (60.0-200.0); Albumin 4.2 g/dL (3.80-4.90); Albumin/Globulin Ratio 1.75 (1.60-3.17); Anion Gap 13.8 mmol/L (4.00-12.00); BUN/Creat Ratio 21.11 Ratio (12.00-20.00); Calcium 9.9 mg/dL (8.7-10.3); Carbon Dioxide 30.2 mmol/L (21.6-31.8); Chol/HDL Ratio 3.45; Globulin 2.4 g/dL (1.6-3.3); LDL Cholesterol,Calculated 46.6 mg/dL (0.0-131.0); Magnesium 1.4 mg/dL (1.5-2.4); Non-African American GFR(CKD) 62.5 (60.0-200.0); Potassium 3.6 mmol/L (3.5-5.5); Total Bilirubin 0.4 mg/dL (0.3-1.2); Total Protein 6.6 g/dL (6.2-8.2); VLDL Calculation 56.4 mg/dL (5.00-40.00)
== END | disposition home or self-care (01) ==
LOC: LABWHC1 15:29
PROVIDERS: ATTEND Nurse Practitioner Adult Health
DX: I10 Essential (primary) hypertension (principal); I47.1 Supraventricular tachycardia
CPT/HCPCS: 36415; 80053; 80061; 83735; 84443; 84481; 85027

== ENCOUNTER → 2019-07-23 | Outpatient (CLI) | payer MEDICARE, OTHER | END | disposition home or self-care (01) | LOC: LABWHC1 11:43 | PROVIDERS: ATTEND Surgery Plastic and Reconstructive Surgery | DX: U07.1 COVID-19 (principal) | CPT/HCPCS: 82565; 84132; 84520; 85027; 87635 ==

== ENCOUNTER 2019-07-25 11:21 | Observation (INO) | payer MEDICARE, OTHER ==
[2019-07-22 16:00] VITALS: BMI 38.5
[2019-07-23 12:19] LABS: HCT 44.9 % (34.0-46.0); HGB 14.8 gm/dL (11.4-16.0); MCH 29.1 pg (25.0-35.0); MCHC 32.9 g/dL (31.0-37.0); MCV 88.4 fL (80.0-100.0); Mean Platelet Volume 6.7; Platelet Count 258 k/uL (150-450); RBC 5.08 m/uL (3.80-5.40); RDW 14.5 % (11.5-15.5); WBC 9.9 k/uL (3.8-10.6)
[2019-07-23 12:34] LABS: African American GFR (CKD) >90 (>60 ml/min/1.73 sqM); Blood Urea Nitrogen 17 mg/dL (7-17); Non-African American GFR(CKD) 86 (>60 ml/min/1.73 sqM); Potassium 3.4 mmol/L (3.5-5.1)
--- NOTE | 2019-07-24 21:34 | P.GSHP ---
History of Present Illness H&P Date: 07/25/19 CHIEF COMPLAINT: Incisional hernia. HISTORY OF PRESENT ILLNESS: The patient is a 74-year-old female who presents with a history of swelling epigastrium Findings were consistent with recurrent incisional hernia. Now she presents for further evaluation and management. PAST MEDICAL HISTORY: Please see list. PAST SURGICAL HISTORY: Please see list. MEDICATIONS: Please see list. ALLERGIES: Please see list. SOCIAL HISTORY: No illicit drug use FAMILY HISTORY: No reports of Crohn disease or ulcerative colitis. REVIEW OF ORGAN SYSTEMS: CONSTITUTIONAL: No reports of fevers or chills. GI: Denies any blood in stools or constipation. PHYSICAL EXAM: VITAL SIGNS: Stable GENERAL: Well-developed pleasant female in no acute distress. HEENT: No scleral icterus. Extraocular movements grossly intact. Moist buccal mucosa. NECK: Supple without lymphadenopathy. CHEST: Unlabored respirations. Equal bilateral excursions. CARDIOVASCULAR: Regular rate and rhythm. Distal 2+ pulses. ABDOMEN: Soft, nondistended. Tender along the right upper abdomen. Protuberant. MUSCULOSKELETAL: No clubbing, cyanosis, or edema. ASSESSMENT: 1. Incisional ventral hernia, recurrent 2. Morbid obesity, BMI 45.2 PLAN: 1. Recommend proceeding with robotic ventral hernia repair with mesh. 2. Benefits and risks of surgical intervention was discussed including possibility of open technique. 3. DVT prophylaxis. 4. Antibiotic prophylaxis. 5. She elevated risk with history of recurrence x 3. Past Medical History Past Medical History: COPD, Diabetes Mellitus, Hypertension, Osteoarthritis (OA), Thyroid Disorder Additional Past Medical History / Comment(s): DDD WITH BACK PAIN, HERNIA, PT UNSURE OF COPD. History of Any Multi-Drug Resistant Organisms: None Reported Past Surgical History: Bowel Resection, Cholecystectomy, Hysterectomy, Pacemaker Additional Past Surgical History / Comment(s): PERFORATED BOWEL AFTER COLONOSCOPY. Past Anesthesia/Blood Transfusion Reactions: No Reported Reaction Type of Cardiac Device: Permanent Pacemaker Device Placement Date:: 2017 Past Psychological History: No Psychological Hx Reported Smoking Status: Never smoker Past Alcohol Use History: Rare Past Drug Use History: None Reported - Past Family History Mother Family Medical History: No Reported History Medications and Allergies Home Medications Medication Instructions Recorded Confirmed Type Insulin Glargine [Lantus] 130 unit SQ HS 04/17/17 07/22/19 History Insulin Lispro [humaLOG Kwikpen] 26 unit SQ AC-BID@1100,1630 04/17/17 07/22/19 History HYDROcodone/APAP 5-325MG [[place] 1 tab PO BID PRN 06/01/17 07/22/19 History 5-325] Simvastatin [Zocor] 40 mg PO HS 10/23/17 07/22/19 History Albuterol Sulfate [Proair Hfa] 2 puff INHALATION RT-Q4H PRN 05/05/18 07/22/19 History Liraglutide [Victoza 2-Stepan] 1.8 mg SQ DAILY 05/05/18 07/22/19 History Aspirin [Adult Low Dose Aspirin EC] 81 mg PO DAILY 07/22/19 07/22/19 History Hydrochlorothiazide (Unk Dose) 1 tab PO DAILY 07/22/19 History Levothyroxine (Unknown Dose) 1 tab PO DAILY 07/22/19 History Losartan Potassium [Cozaar] 50 mg PO DAILY 07/22/19 07/22/19 History Multivit with Calcium,Iron,Min 1 each PO DAILY 07/22/19 07/22/19 History [Women's Multivitamin] Naproxen (Unknown Dose) 1 tab PO DIRECTED PRN 07/22/19 History Allergies Allergy/AdvReac Type Severity Reaction Status Date / Time No Known Allergies Allergy Verified 07/22/19 15:03 Results - Labs 07/23/19 12:07 07/23/19 12:07
[~2019-07-25 11:21] MED LIST changes: +HEPARIN SODIUM,PORCINE 5,000 UNIT/ML 1 ML VIAL SQ ONE; +LIDOCAINE 1% (10MG/ML) FOR IV START INTRADERMA PRN; -LIDOCAINE 1% 20 ML VIAL (10MG/ML) FOR IV START INTRADERMA PRN; +fentaNYL (PF) 50 MCG/ML 2 ML AMP IV PRN
[2019-07-25] MEDS ORDERED: GABAPENTIN 300 MG CAP PO STA (12:45)
[2019-07-25] MEDS ORDERED: ACETAMINOPHEN TAB 500 MG TAB PO STA (12:45)
[2019-07-25] MEDS: LACTATED RINGERS 1,000 ML IV SCH ×2 (12:46→19:55)
[2019-07-25 13:24] LABS: Glucose,Whole Blood 171 mg/dL (75-99)
[2019-07-25] MEDS ORDERED: ONDANSETRON 4 MG/2 ML VIAL IVP ONE ×2 (13:28→18:30)
[2019-07-25] MEDS ORDERED: DEXAMETHASONE SOD PHOSPHATE 10 MG/ML 1 ML VIAL IV ONE ×2 (13:28→18:35)
[2019-07-25] MEDS ORDERED: BUPIVACAIN-EPI 0.25%-1:200,000 30 ML VIAL SQ ONE ×2 (15:08→15:46)
[2019-07-25] MEDS ORDERED: LIDOCAINE 1% INJ 10MG/ML (20 ML MDV) ONE (15:18)
[2019-07-25] MEDS ORDERED: HYDROmorphone (PF) 1 MG/ML ONE (15:18)
[2019-07-25] MEDS ORDERED: SUCCINYLCHOLINE CHLORIDE 100 MG/5 ML SYR IV ONE (15:18)
[2019-07-25] MEDS ORDERED: NEOSTIGMINE 1 MG/ML 10 ML VIAL ONE (15:18)
[2019-07-25] MEDS ORDERED: ePHEDrine SULFATE/0.9% NACL/PF 50 MG/5 ML SYRINGE IV ONE (15:18)
[2019-07-25] MEDS ORDERED: ROCURONIUM BROMIDE 10 MG/ML 5 ML VIAL IV ONE (15:18)
[2019-07-25] MEDS ORDERED: fentaNYL (PF) 50 MCG/ML 2 ML AMP ONE (15:18)
[2019-07-25] MEDS ORDERED: MIDAZOLAM 2 MG/2 ML VIAL ONE (15:18)
[2019-07-25] MEDS ORDERED: GLYCOPYRROLATE 0.2 MG/ML 2 ML VIAL ONE (15:18)
[2019-07-25] MEDS ORDERED: PROPOFOL 10 MG/ML 20 ML VIAL IV ONE (15:18)
[2019-07-25] MEDS ORDERED: LACTATED RINGERS 1,000 ML IV ONE ×2 (15:46→19:23)
[2019-07-25 17:58] LABS: Glucose,Whole Blood 257 mg/dL (75-99)
[2019-07-25] MEDS ORDERED: INSULIN ASPART (NovoLOG) 100 UNIT/ML VIAL SQ ONE (18:01)
[2019-07-25] MEDS: HYDROmorphone 0.5 MG/0.5 ML SYRINGE IVP PRN ×2 (18:09→18:19)
[2019-07-25] MEDS ORDERED: KETOROLAC 30 MG/ML 1 ML VIAL IVP STA (18:28)
--- NOTE | 2019-07-25 18:28 | P.OP ---
Date of Procedure: 07/25/19 Description of Procedure: SURGEON: GAEL SOSA MD 1. ANJELICA JOSE PREOPERATIVE DIAGNOSES: 1. Recurrent incisional ventral hernia, lower abdomen 2. Lower abdominal pain 3. History of previous exploratory laparotomy 4. Morbid obesity due to excess calories 5. Body mass index 36.6 6. Diabetes type insulin-dependent 7. Diffuse osteoarthritis 8. Chronic obstructive pulmonary disease 9. Hypothyroidism 10. Heart arrhythmia POSTOPERATIVE DIAGNOSES: 1. Recurrent incisional ventral hernia, lower abdomen, with incarceration 2. Lower abdominal pain 3. History of previous exploratory laparotomy 4. Morbid obesity due to excess calories 5. Body mass index 36.6 6. Diabetes type insulin-dependent 7. Diffuse osteoarthritis 8. Chronic obstructive pulmonary disease 9. Hypothyroidism 10. Heart arrhythmia 12. Moderate peritoneal adhesions right upper quadrant and lower midline, greater omentum to abdominal wall 13. Incarcerated incisional ventral hernia 5 cm X 4 CM, lower midline, recurrent OPERATION: 1. Robotic-assisted da Huy Xi laparoscopic lysis of adhesions over 45 minutes 2. Robotic-assisted da Huy Xi laparoscopic repair of recurrent incarcerated lower abdominal ventral hernia with mesh, ventralight ST mesh 11.4 cm Anesthesia: GETA, regional, local Estimated Blood Loss (ml): 5 Pathology: None COMPLICATIONS: None. Operative Findings: 1. Recurrent lower abdominal incisional ventral hernia, incarcerated with fascial defect 5 x 4 cm 2. Fascia repaired using #1 V-lock suture 3. Incisional incarcerated hernia, right upper quadrant 2 cm also repaired INDICATIONS: The patient is a 74-year-old [place] who presents with a personal history of multiple abdominal wall hernias. Surgical intervention with laparoscopic versus robotic and open techniques were reviewed. Placement of mesh was also reviewed. Benefits and risks were thoroughly described. Informed consent was obtained. DESCRIPTION OF PROCEDURE: The patient was brought into the operating room and laid in supine position. After general induction, the abdomen had been prepped and draped in standard sterile fashion. Ioban draping was also placed. Prior to incision, a timeout protocol was confirmed with surgical team regarding the patient's name including procedures to be performed. The robot was primed prior to the procedure. A field block using local anesthetic was placed along hernia site including the proposed port sites. Initial incision was made with an #11 blade along the left upper quadrant. A 0 degree 5 mm laparoscopic trocar entry was performed and insufflated. Three 8 mm ports were placed along the left lateral abdominal wall under direct localiz ation after exchanging the 5-mm for an 8 mm port. Placements of the ports were 15 cm from the target anatomy and 10 cm apart. The da Huy Xi robot was previously primed, prepped and draped then docked onto the left side of the patient. I then sat at the robot Da Huy Xi console where working arms of the robot including Bovie cautery connected to robotic scissors, vessel sealer, needle jinrikisha driver, and graspers placed by the executive chef assistant. Incarcerated omental contents were found along the lower midline, epigastrium and right upper quadrant. Extensive peritoneal adhesions greater omentum to ant erior abdominal wall was identified. Separate incarcerated incisional hernia defect was found along the right upper quadrant 2 cm. The defects were reduced after extensive lysis of adhesions over 45 minutes using vessel sealer. No enterotomies occurred throughout the entire procedure. Two distinct incisional fascial defects were found: Lower midline defect 5 x 4 cm and right upper quadrant hernia defect 2 cm. An accessory 12 mm port was placed at the right upper quadrant for exchange of mesh including sutures. The incarcerated contents were reduced as the peritoneal fat was cleaned from the abdominal wall. Next, hemostasis was checked. The hernia defects were oversewn using #1 nonabsorbable V-lock suture for each defect separately with fascial imbrication x 2. Next, ventralight ST mesh 11.4 cm was placed with the rough side towards the abdominal wall as to cover the epigastric including umbilical defect. 2-0 VLOC 9 inch sutures were used to fixate the mesh. The 12 mm trocar was removed and the fascial defect was oversewn using 2-0V LOC nonabsorbable. A final endoscopic imaging was obtained. All instruments and pneumoperitoneum were evacuated from the abdominal cavity. The da Huy Xi robot was undocked from the patient. I re-scrubbed into the case for closure of incisions. The incisions were reapproximated using 4-0 Monocryl in an interrupted subcuticular fashion. Liquid glue was applied to the skin after cleansing the skin with normal saline and dilute hydrogen peroxide. An abdominal binder was placed. At the end of the procedure, needle, sponge, and instrument count had been verified correct by rn neurosurgical. The patient was taken to the postanesthesia care unit in stable condition. Plan - Discharge Summary Discharge Rx Participant: Yes New Discharge Prescriptions: New Ibuprofen [Motrin] 600 mg PO Q8HR PRN #30 tab PRN Reason: Pain Acetaminophen Tab [Tylenol Tab] 1,000 mg PO Q6HR PRN #30 tablet Continue Insulin Lispro [humaLOG Kwikpen] 26 unit SQ AC-BID@1100,1630 Insulin Glargine [Lantus] 130 unit SQ HS HYDROcodone/APAP 5-325MG [[place] 5-325] 1 tab PO BID PRN PRN Reason: Pain Simvastatin [Zocor] 40 mg PO HS Liraglutide [Victoza 2-Stepan] 1.8 mg SQ DAILY Albuterol Sulfate [Proair Hfa] 2 puff INHALATION RT-Q4H PRN PRN Reason: difficulty in breathing Multivit with Calcium,Iron,Min [Women's Multivitamin] 1 each PO DAILY Naproxen (Unknown Dose) 1 tab PO DIRECTED PRN PRN Reason: Pain Aspirin [Adult Low Dose Aspirin EC] 81 mg PO DAILY Levothyroxine (Unknown Dose) 1 tab PO DAILY Hydrochlorothiazide (Unk Dose) 1 tab PO DAILY Losartan Potassium [Cozaar] 50 mg PO DAILY Discharge Medication List Insulin Glargine [Lantus] 130 unit SQ HS 04/17/17 [History] Insulin Lispro [humaLOG Kwikpen] 26 unit SQ AC-BID@1100,1630 04/17/17 [History] HYDROcodone/APAP 5-325MG [[place] 5-325] 1 tab PO BID PRN 06/01/17 [History] Simvastatin [Zocor] 40 mg PO HS 10/23/17 [History] Albuterol Sulfate [Proair Hfa] 2 puff INHALATION RT-Q4H PRN 05/05/18 [History] Liraglutide [Victoza 2-Stepan] 1.8 mg SQ DAILY 05/05/18 [History] Aspirin [Adult Low Dose Aspirin EC] 81 mg PO DAILY 07/22/19 [History] Hydrochlorothiazide (Unk Dose) 1 tab PO DAILY 07/22/19 [History] Levothyroxine (Unknown Dose) 1 tab PO DAILY 07/22/19 [History] Losartan Potassium [Cozaar] 50 mg PO DAILY 07/22/19 [History] Multivit with Calcium,Iron,Min [Women's Multivitamin] 1 each PO DAILY 07/22/19 [History] Naproxen (Unknown Dose) 1 tab PO DIRECTED PRN 07/22/19 [History] Acetaminophen Tab [Tylenol Tab] 1,000 mg PO Q6HR PRN #30 tablet 07/25/19 [Rx] Ibuprofen [Motrin] 600 mg PO Q8HR PRN #30 tab 07/25/19 [Rx] Follow up Appointment(s)/Referral(s): Gael Sosa MD [STAFF PHYSICIAN] - 07/30/19 Patient Instructions/Handouts: Laparoscopic Herniorrhaphy (DC), Abdominal Binder (DC) Activity/Diet/Wound Care/Special Instructions: Wear abdominal binder at all times No lifting over 4 pounds in 4 weeks until August 24. July shower. No bath tub soaks for two weeks until August 07 Diet as tolerated. No driving while on narcotics. Use Tylenol and ibuprofen scheduled for the next 24-48 hours for best pain relief. Use ice along incisions for the today to prevent swelling. Discharge Disposition: HOME SELF-CARE
--- NOTE | 2019-07-25 18:28 | P.PN ---
Progress Note - Text Progress Note Date: 07/25/19 Patient sister Brigida was notified over the phone regarding intraoperative findings. All questions were addressed.
[2019-07-25] MEDS ORDERED: fentaNYL (PF) 50 MCG/ML 2 ML AMP IVP ONE (18:32)
[2019-07-25] MEDS ORDERED: KETOROLAC 30 MG/ML 1 ML VIAL IVP ONE (18:35)
[2019-07-25] MEDS ORDERED: METOCLOPRAMIDE 5 MG/ML 2 ML VIAL IVP PRN (18:56)
[2019-07-25] MEDS ORDERED: NALOXONE 0.4 MG/ML 1 ML VIAL IV PRN (18:56)
[2019-07-25] MEDS ORDERED: ONDANSETRON 4 MG/2 ML VIAL IVP PRN (18:56)
--- NOTE | 2019-07-25 18:56 | P.PN ---
Progress Note - Text Progress Note Date: 07/25/19 Patient complaining of moderate to severe pain. We'll continue for observation for pain management.
[2019-07-25] MEDS ORDERED: ALBUTEROL NEBULIZED 2.5 MG/3 ML INHALATION PRN (18:58)
[2019-07-25] MEDS ORDERED: HYDROcodone/APAP 5-325MG 1 EACH TAB PO ONE (19:08)
[2019-07-25 20:05] LABS: Glucose,Whole Blood 306 mg/dL (75-99)
[2019-07-25] MEDS: INSULIN DETEMIR (LEVEMIR) 100 UNIT/ML SYR SQ SCH (21:57)
[2019-07-25] MEDS: HYDROcodone/APAP 5-325MG 1 EACH TAB PO PRN (22:03)
[2019-07-25] MEDS: KETOROLAC 30 MG/ML 1 ML VIAL IVP SCH (23:51)
[2019-07-26] MEDS: HYDROmorphone 1 MG/ML 1 ML SYRINGE IVP PRN ×2 (01:37→09:23)
[2019-07-26 02:15] LABS: Glucose,Whole Blood 330 mg/dL (75-99)
[2019-07-26] MEDS: KETOROLAC 30 MG/ML 1 ML VIAL IVP SCH ×3 (05:28→15:58)
[2019-07-26] MEDS: HYDROcodone/APAP 5-325MG 1 EACH TAB PO PRN (05:59)
[2019-07-26 06:54] LABS: Glucose,Whole Blood 348 mg/dL (75-99)
--- NOTE | 2019-07-26 08:08 | P.PN ---
Progress Note - Text Progress Note Date: 07/26/19 Scope to patient's nurse. Patient had blood sugars over 300s. Patient unaware of all of her home medications. All medications for diabetes resumed. We'll reassess prior to lunch for improvement blood sugars prior to discharge.
[2019-07-26] MEDS: INSULIN ASPART (NovoLOG) 100 UNIT/ML VIAL SQ SCH ×5 (08:17→15:57)
[2019-07-26] MEDS ORDERED: HYDROCHLOROTHIAZIDE 25 MG TAB PO SCH (09:00)
[2019-07-26] MEDS ORDERED: PANTOPRAZOLE 40 MG/10 ML VIAL IV SCH (09:00)
[2019-07-26] MEDS ORDERED: NON FORMULARY DRUG (Liraglutide [Victoza 2-Pak] 1.8 MG) SQ SCH (09:00)
[2019-07-26] MEDS ORDERED: LOSARTAN 50 MG TAB PO SCH (09:00)
[2019-07-26 11:26] LABS: Glucose,Whole Blood 323 mg/dL (75-99)
[2019-07-26 11:49] VITALS: BP 128/68; PULSE 99; RESP 17; TEMP 97.6
[2019-07-26] MEDS: LACTATED RINGERS 1,000 ML IV SCH (12:27)
[2019-07-26] MEDS: INSULIN DETEMIR (LEVEMIR) 100 UNIT/ML SYR SQ SCH (13:27)
[2019-07-26 14:39] LABS: Glucose,Whole Blood 317 mg/dL (75-99)
[2019-07-26 15:35] LABS: Glucose,Whole Blood 298 mg/dL (75-99)
[2019-07-26 16:43] LABS: Glucose,Whole Blood 297 mg/dL (75-99)
--- NOTE | 2019-07-26 17:07 | P.DS ---
Providers Date of admission: 07/26/19 11:20 Expected date of discharge: 07/26/19 Attending physician: Cinda Sosa Primary care physician: Bryan Shine - Discharge Diagnosis(es) (1) Morbid obesity due to excess calories Current Visit: Yes Status: Acute (2) BMI 37.0-37.9, adult Current Visit: Yes Status: Acute (3) Diabetes mellitus type 2, insulin dependent Current Visit: Yes Status: Acute (4) Hyperglycemia Current Visit: Yes Status: Acute (5) Hyperglycemia due to type 2 diabetes mellitus Current Visit: Yes Status: Acute (6) Recurrent incisional hernia with incarceration Current Visit: Yes Status: Acute (7) Hypertensive heart disease Current Visit: Yes Status: Acute (8) Asthma Current Visit: Yes Status: Acute (9) Diabetes Current Visit: No Status: Acute Hospital Course: The patient is a 74-year-old female status post robotic-assisted repair of recurrent incarcerated incisional hernia. She was admitted secondary to hyperglycemia including postoperative pain management. Blood sugar glucose was 300. She was resumed back on her home medications. Blood sugars had improved. Pain had improved prior to discharge. Discharge instructions including no lifting over 4 pounds for 4 weeks were reviewed reviewed. Patient to follow-up in the office within 7 days. She will continue to wear her abdominal binder. Patient Condition at Discharge: Stable Plan - Discharge Summary Discharge Rx Participant: Yes New Discharge Prescriptions: New Ibuprofen [Motrin] 600 mg PO Q8HR PRN #30 tab PRN Reason: Pain Acetaminophen Tab [Tylenol Tab] 1,000 mg PO Q6HR PRN #30 tablet Continue Insulin Lispro [humaLOG Kwikpen] 26 unit SQ AC-BID@1100,1630 Insulin Glargine [Lantus] 130 unit SQ HS HYDROcodone/APAP 5-325MG [[place] 5-325] 1 tab PO BID PRN PRN Reason: Pain Simvastatin [Zocor] 40 mg PO HS Liraglutide [Victoza 2-Stepan] 1.8 mg SQ DAILY Albuterol Sulfate [Proair Hfa] 2 puff INHALATION RT-Q4H PRN PRN Reason: difficulty in breathing Multivit with Calcium,Iron,Min [Women's Multivitamin] 1 tab PO DAILY Aspirin [Adult Low Dose Aspirin EC] 81 mg PO DAILY Losartan Potassium [Cozaar] 50 mg PO DAILY No Action Hydrochlorothiazide 25 mg PO DAILY Levothyroxine Sodium [Synthroid] 112 mcg PO DAILY Naproxen 500 mg PO DAILY PRN PRN Reason: Pain Discharge Medication List Insulin Glargine [Lantus] 130 unit SQ HS 04/17/17 [History] Insulin Lispro [humaLOG Kwikpen] 26 unit SQ AC-BID@1100,1630 04/17/17 [History] HYDROcodone/APAP 5-325MG [[place] 5-325] 1 tab PO BID PRN 06/01/17 [History] Simvastatin [Zocor] 40 mg PO HS 10/23/17 [History] Albuterol Sulfate [Proair Hfa] 2 puff INHALATION RT-Q4H PRN 05/05/18 [History] Liraglutide [Victoza 2-Stepan] 1.8 mg SQ DAILY 05/05/18 [History] Aspirin [Adult Low Dose Aspirin EC] 81 mg PO DAILY 07/22/19 [History] Losartan Potassium [Cozaar] 50 mg PO DAILY 07/22/19 [History] Multivit with Calcium,Iron,Min [Women's Multivitamin] 1 tab PO DAILY 07/22/19 [History] Acetaminophen Tab [Tylenol Tab] 1,000 mg PO Q6HR PRN #30 tablet 07/25/19 [Rx] Ibuprofen [Motrin] 600 mg PO Q8HR PRN #30 tab 07/25/19 [Rx] Hydrochlorothiazide 25 mg PO DAILY 07/26/19 [History] Levothyroxine Sodium [Synthroid] 112 mcg PO DAILY 07/26/19 [History] Naproxen 500 mg PO DAILY PRN 07/26/19 [History] Follow up Appointment(s)/Referral(s): Cinda Sosa MD [STAFF PHYSICIAN] - 07/30/19 (PLEASE CALL FOR AN APPOINTMENT) Patient Instructions/Handouts: Laparoscopic Herniorrhaphy (DC), Abdominal Binder (DC) Activity/Diet/Wound Care/Special Instructions: Wear abdominal binder at all times No lifting over 4 pounds in 4 weeks until August 24. July shower. No bath tub soaks for two weeks until August 07 Diet as tolerated. No driving while on narcotics. Use Tylenol and ibuprofen scheduled for the next 24-48 hours for best pain relief. Use ice along incisions for the today to prevent swelling.
== END 2019-07-26 17:09 | disposition home or self-care (01) ==
LOC: OR 11:21 → 5NMEDONC 17:15 → OR 07-26 11:20 → 5NMEDONC 07-26 11:20
PROVIDERS: ADMIT Surgery Plastic and Reconstructive Surgery; ATTEND Surgery Plastic and Reconstructive Surgery
DX: K43.0 Incisional hernia with obstruction, without gangrene (principal); K66.0 Peritoneal adhesions (postprocedural) (postinfection); E66.01 Morbid (severe) obesity due to excess calories; Z68.37 Body mass index [BMI] 37.0-37.9, adult; E11.65 Type 2 diabetes mellitus with hyperglycemia; M19.90 Unspecified osteoarthritis, unspecified site; J44.9 Chronic obstructive pulmonary disease, unspecified; I44.2 Atrioventricular block, complete; I42.8 Other cardiomyopathies; Z95.0 Presence of cardiac pacemaker; I11.9 Hypertensive heart disease without heart failure; E03.9 Hypothyroidism, unspecified; I49.9 Cardiac arrhythmia, unspecified; E78.5 Hyperlipidemia, unspecified; I47.1 Supraventricular tachycardia; Z90.49 Acquired absence of other specified parts of digestive tract; Z90.710 Acquired absence of both cervix and uterus; Z97.2 Presence of dental prosthetic device (complete) (partial); Z79.82 Long term (current) use of aspirin; Z79.890 Hormone replacement therapy; Z79.899 Other long term (current) drug therapy; Z79.4 Long term (current) use of insulin
CPT/HCPCS: 49657; 82565; 84132 ×2; 84520; 85027; 87635; G0378; C1781; J2250; J1644; J1100; J2710; J0690; J2405 ×2; J2001; J3010; J1885 ×2; J1170 ×3; J0330; J2704; C9113

== ENCOUNTER → 2022-03-29 | Outpatient (CLI) | payer MEDICARE, OTHER ==
--- NOTE | 2022-03-29 15:57 | XR ---
EXAMINATION TYPE: XR knee complete LT DATE OF EXAM: 03/29/2022 COMPARISON: NONE HISTORY: Pain TECHNIQUE: Three views are submitted. FINDINGS: Tiny spurs involving the patella are seen and there is evidence of chondrocalcinosis. Osseous struct ures are intact. No acute fracture seen. Vascular calcifications noted. IMPRESSION: 1. Involving the knee joint. Small amount of fluid in the suprapatellar bursa. Arthropathy correlate for osteoarthritis first depositional arthropathy. 2. No acute fracture..
--- NOTE | 2022-03-29 15:58 | XR ---
EXAM TYPE: LUMBAR SPINE X RAY SERIES COMPARISON: 12/03/2012 HISTORY: Pain TECHNIQUE: 3 views are submitted. FINDINGS: Alignment is anatomic. The pedicles are intact. The transverse processes are intact. There is surg ical clip right upper quadrant. Vascular calcifications are seen. There is severe degenerative disc d isease L4-L5. Anterior spurring at all levels with additional mild multilevel degenerative disc disea se. Facet arthropathy L5-S1. IMPRESSION: 1. Severe degenerative disc disease L4-L5 with additional multilevel mild degenerative disc disease.
== END | disposition home or self-care (01) ==
LOC: RADXRMAIN 15:08
PROVIDERS: ATTEND Family Medicine
DX: S89.92XD Unspecified injury of left lower leg, subsequent encounter (principal); M51.37 Other intervertebral disc degeneration, lumbosacral region; M17.11 Unilateral primary osteoarthritis, right knee; M51.36 Other intervertebral disc degeneration, lumbar region
CPT/HCPCS: 72100

== ENCOUNTER 2023-12-20 08:37 | Emergency (ER) | payer MEDICARE, OTHER ==
[2023-12-20 08:42] VITALS: RESP 18
[2023-12-20] MEDS: KETOROLAC 15 MG/ML 1 ML VIAL IVP STA (09:17)
[2023-12-20] MEDS: diazePAM 5 MG TAB PO STA (09:17)
--- NOTE | 2023-12-20 09:25 | ED ---
General Adult HPI - General Chief complaint: Neck Pain/Injury Stated complaint: neck pain Time Seen by Provider: 12/20/23 08:50 Source: patient, RN notes reviewed, old records reviewed Mode of arrival: wheelchair Limitations: no limitations - History of Present Illness Initial comments: This is a 78-year-old female who presents to the emergency department complaining of left-sided neck pain. Patient states it radiates from the shoulder up into the skull. Patient states it has been 2 or 3 days now of this pain and is difficult to lie down with it or to move her neck. Patient denies any numbness weakness. Patient has any injury or trauma. Patient denies any fever chills. Patient denies any chest pain or difficulty breathing. - Related Data Home Medications Medication Instructions Recorded Confirmed Insulin Glargine [Lantus Vial] 130 unit SQ HS 04/17/17 07/25/19 Insulin Lispro [humaLOG Kwikpen] 26 unit SQ AC-BID@1100,1630 04/17/17 07/25/19 HYDROcodone/APAP 5-325MG [[place] 1 tab PO BID PRN 06/01/17 07/25/19 5-325] Simvastatin [Zocor] 40 mg PO HS 10/23/17 07/25/19 Albuterol Sulfate [Proair Hfa] 2 puff INHALATION RT-Q4H PRN 05/05/18 07/25/19 Liraglutide [Victoza 2-Stepan] 1.8 mg SQ DAILY 05/05/18 07/25/19 Aspirin [Adult Low Dose Aspirin EC] 81 mg PO DAILY 07/22/19 07/25/19 Losartan Potassium [Cozaar] 50 mg PO DAILY 07/22/19 07/25/19 Multivit with Calcium,Iron,Min 1 tab PO DAILY 07/22/19 07/26/19 [Women's Multivitamin] Levothyroxine Sodium [Synthroid] 112 mcg PO DAILY 07/26/19 07/26/19 Naproxen 500 mg PO DAILY PRN 07/26/19 07/26/19 hydroCHLOROthiazide 25 mg PO DAILY 07/26/19 07/26/19 Previous Rx's Medication Instructions Recorded Acetaminophen Tab [Tylenol Tab] 1,000 mg PO Q6HR PRN #30 tablet 07/25/19 Ibuprofen [Motrin] 600 mg PO Q8HR PRN #30 tab 07/25/19 Cyclobenzaprine [Flexeril] 10 mg PO TID #20 tab 12/20/23 Ketorolac [Toradol] 10 mg PO Q8HR #15 tab 12/20/23 Allergies Allergy/AdvReac Type Severity Reaction Status Date / Time No Known Allergies Allergy Verified 12/20/23 08:39 Review of Systems ROS Statement: Those systems with pertinent positive or pertinent negative responses have been documented in the HPI. ROS Other: All systems not noted in ROS Statement are negative. Past Medical History Past Medical History: Diabetes Mellitus, GERD/Reflux, Hypertension, Thyroid Disorder Additional Past Medical History / Comment(s): DDD WITH BACK PAIN, HERNIA, ulcerative colitis History of Any Multi-Drug Resistant Organisms: None Reported Past Surgical History: Bowel Resection, Cholecystectomy, Hysterectomy, Pacemaker Additional Past Surgical History / Comment(s): "repair of bowel from colonoscopy" Past Anesthesia/Blood Transfusion Reactions: No Reported Reaction Type of Cardiac Device: Permanent Pacemaker Device Placement Date:: 2017 Past Psychological History: No Psychological Hx Reported Smoking Status: Never smoker Past Alcohol Use History: None Reported Past Drug Use History: None Reported - Past Family History Mother Family Medical History: No Reported History General Exam - General Exam Comments Initial Comments: GENERAL: Patient is well-developed and well-nourished. Patient is nontoxic and well- hydrated and is in mild distress. ENT: Neck is soft and supple. No significant lymphadenopathy is noted. Oropharynx is clear. Moist mucous membranes. Patient has left trapezius muscle tenderness. Patient has limited range of motion secondary to pain in the left trapezius muscle EYES: The sclera were anicteric and conjunctiva were pink and moist. Extraocular movements were intact and pupils were equal round and reactive to light. Eyelids were unremarkable. SKIN: Skin is clear with no lesions or rashes and otherwise unremarkable. NEUROLOGIC: Patient is alert and oriented x3. Cranial nerves II through XII are grossly intact. Motor and sensory are also intact. Normal speech, volume and content. Symmetrical smile. MUSCULOSKELETAL: Normal extremities with adequate strength and full range of motion. LYMPHATICS: No significant lymphadenopathy is noted PSYCHIATRIC: Normal psychiatric evaluation. Limitations: no limitations Course Vital Signs 12/20/23 08:39 Temperature 97.6 F Pulse Rate 87 Respiratory 18 Rate Blood Pressure 155/83 O2 Sat by Pulse 97 Oximetry Medical Decision Making - Medical Decision Making Was pt. sent in by a medical professional or institution (T[employer] Francois, SPORTS DEVELOPMENT OFFICER, urgent care, hospital, or usp...) When possible be specific @ -No Did you speak to anyone other than the patient for history (EMS, parent, family, police, friend...)? What history was obtained from this source @ -No Did you review nursing and triage notes (agree or disagree)? Why? @ -I reviewed and agree with nursing and triage notes Were old charts reviewed (outside hosp., previous admission, EMS record, old EKG, old radiological studies, urgent care reports/EKG's, usp records)? Report findings @ -No old charts were reviewed Differential Diagnosis? @ -Differential Musculoskeletal Muscular strain, contusion, ligament sprain, fracture, arthritis, septic arthritis, bursitis, cellulitis, muscle spasm, nerve compression, DVT, arterial occlusion, herpes zoster, electrolyte abnormality, tumor.... This is not meant to be in all inclusive list EKG interpreted by me (3pts min.). @ -As above X-rays interpreted by me (1pt min.). @ -None done CT interpreted by me (1pt min.). @ -None done U/S interpreted by me (1pt. min.). @ -None done What testing was considered but not performed or refused? (CT, X-rays, U/S, labs)? Why? @ -None What meds were considered but not given or refused? Why? @ -None Did you discuss the management of the patient with other professionals (professionals i.e. [employer] Francois, SPORTS DEVELOPMENT OFFICER, lab, RT, psych nurse, social media job titles, pathology collector, teacher, correction officer reformatory, disease case manager)? Give summary @ -No Was smoking cessation discussed for >3mins.? @ -No Was critical care preformed (if so, how long)? @ -No Were there social determinants of health that impacted care today? How? (Homelessness, low income, unemployed, alcoholism, drug addiction, transportation, low edu. Level, literacy, decrease access to med. care, senior care, rehab)? @ -No Was there de-escalation of care discussed even if they declined (Discuss DNR or withdrawal of care, Hospice)? DNR status @ -No What co-morbidities impacted this encounter? (DM, HTN, Smoking, COPD, CAD, Cancer, CVA, ARF, Chemo, Hep., AIDS, mental health diagnosis, sleep apnea, morbid obesity)? @ -None Was patient admitted / discharged? Hospital course, mention meds given and route, prescriptions, significant lab abnormalities, going to OR and other pertinent info. @ -Patient received Valium p.o. and a Toradol shot IM and will be sent home on Flexeril and Toradol. Undiagnosed new problem with uncertain prognosis? @ -No Drug Therapy requiring intensive monitoring for toxicity (Heparin, Nitro, Insulin, Cardizem)? @ -No Were any procedures done? @ -No Diagnosis/symptom? @ -Trapezius muscle strain Acute, or Chronic, or Acute on Chronic? @ -Acute Uncomplicated (without systemic symptoms) or Complicated (systemic symptoms)? @ -Uncomplicated Side effects of treatment? @ -No Exacerbation, Progression, or Severe Exacerbation? @ -No Poses a threat to life or bodily function? How? (Chest pain, [place], [place], pneumonia, PE, COPD, DKA, ARF, appy, cholecystitis, CVA, Diverticulitis, Homicidal, Suicidal, threat to staff... and all critical care pts) @ -No Disposition Clinical Impression: Trapezius muscle strain Disposition: HOME SELF-CARE Condition: Good Instructions (If sedation given, give patient instructions): Cervical Strain (ED) Prescriptions: Cyclobenzaprine [Flexeril] 10 mg PO TID #20 tab Ketorolac [Toradol] 10 mg PO Q8HR #15 tab Is patient prescribed a controlled substance at d/c from ED?: No Referrals: Bryan Shine DO [Primary Care Provider] - 1-2 days Time of Disposition: 09:43
[2023-12-20 10:17] VITALS: BP 112/76; PULSE 78; TEMP 98.1
== END 2023-12-20 10:17 | disposition home or self-care (01) ==
LOC: EC 08:37
CPT/HCPCS: 96374; 99283

== ENCOUNTER 2024-08-17 15:51 | Emergency (ER) | payer MEDICARE, OTHER ==
[2024-08-17 16:03] VITALS: RESP 16
--- NOTE | 2024-08-17 16:16 | ED ---
Neck Injury/Pain HPI - General Chief Complaint: Neck Pain/Injury Stated Complaint: Pain in Neck + BL Shoulder/Arm pain Time Seen by Provider: 08/17/24 16:06 Source: RN notes reviewed, old records reviewed, Caregiver Mode of arrival: ambulatory Limitations: no limitations - History of Present Illness Initial Comments: This is a 79-year-old female to the ER for evaluation of neck pain right-sided neck pain shoulder pain back pain. She states she woke with the symptoms this morning with no traumatic injury difficulty moving her neck to both sides diff iculty moving her head up and down right and left, no chest pain, no trouble eating or drinking. No fevers. Patient did have an episode of feeling clammy and nauseous prior to arrival MD Complaint: neck pain, upper back pain -: hour(s) Place: home Radiation: right lateral, head, occiput, right shoulder Severity: moderate Severity scale (1-10): 6 Quality: aching Consistency: constant Improves With: none Context: turning/bending Associated Symptoms: none - Related Data Home Medications Medication Instructions Recorded Confirmed Insulin Glargine (Lantus) [Lantus 130 unit SQ HS 04/17/17 07/25/19 Vial] Insulin Lispro [humaLOG Kwikpen] 26 unit SQ AC-BID@1100,1630 04/17/17 07/25/19 HYDROcodone/APAP 5-325MG [[place] 1 tab PO BID PRN 06/01/17 07/25/19 5-325] Simvastatin [Zocor] 40 mg PO HS 10/23/17 07/25/19 Albuterol Sulfate [Proair Hfa] 2 puff INHALATION RT-Q4H PRN 05/05/18 07/25/19 Liraglutide [Victoza 2-Stepan] 1.8 mg SQ DAILY 05/05/18 07/25/19 Aspirin [Adult Low Dose Aspirin EC] 81 mg PO DAILY 07/22/19 07/25/19 Losartan Potassium [Cozaar] 50 mg PO DAILY 07/22/19 07/25/19 Multivit with Calcium,Iron,Min 1 tab PO DAILY 07/22/19 07/26/19 [Women's Multivitamin] Levothyroxine Sodium [Synthroid] 112 mcg PO DAILY 07/26/19 07/26/19 Naproxen 500 mg PO DAILY PRN 07/26/19 07/26/19 hydroCHLOROthiazide 25 mg PO DAILY 07/26/19 07/26/19 Previous Rx's Medication Instructions Recorded Acetaminophen Tab [Tylenol Tab] 1,000 mg PO Q6HR PRN #30 tablet 07/25/19 Ibuprofen [Motrin] 600 mg PO Q8HR PRN #30 tab 07/25/19 Cyclobenzaprine [Flexeril] 10 mg PO TID #20 tab 12/20/23 Ketorolac [Toradol] 10 mg PO Q8HR #15 tab 12/20/23 Ketorolac [Toradol] 10 mg PO Q6HR #12 tab 08/17/24 Allergies Allergy/AdvReac Type Severity Reaction Status Date / Time No Known Allergies Allergy Verified 12/20/23 08:39 Review of Systems ROS Statement: Those systems with pertinent positive or pertinent negative responses have been documented in the HPI. ROS Other: All systems not noted in ROS Statement are negative. Past Medical History Past Medical History: Diabetes Mellitus, GERD/Reflux, Hypertension, Thyroid Disorder Additional Past Medical History / Comment(s): DDD WITH BACK PAIN, HERNIA, ulcerative colitis History of Any Multi-Drug Resistant Organisms: None Reported Past Surgical History: Bowel Resection, Cholecystectomy, Hysterectomy, Pacemaker Additional Past Surgical History / Comment(s): "repair of bowel from colonoscopy" Past Anesthesia/Blood Transfusion Reactions: No Reported Reaction Type of Cardiac Device: Permanent Pacemaker Device Placement Date:: 2017 Past Psychological History: No Psychological Hx Reported Smoking Status: Never smoker Past Alcohol Use History: None Reported Past Drug Use History: None Reported - Past Family History Mother Family Medical History: No Reported History General Exam Limitations: no limitations General appearance: alert, in no apparent distress Head exam: Present: atraumatic, normocephalic, normal inspection Eye exam: Present: normal appearance, PERRL, EOMI. Absent: scleral icterus, conjunctival injection, periorbital swelling ENT exam: Present: normal exam, mucous membranes moist Neck exam: Present: normal inspection. Absent: tenderness, meningismus, lymphadenopathy Respiratory exam: Present: normal lung sounds bilaterally. Absent: respiratory distress, wheezes, rales, rhonchi, stridor Cardiovascular Exam: Present: regular rate, normal rhythm, normal heart sounds. Absent: systolic murmur, diastolic murmur, rubs, gallop, clicks GI/Abdominal exam: Present: soft, normal bowel sounds. Absent: distended, tenderness, guarding, rebound, rigid Extremities exam: Present: normal inspection, full ROM, normal capillary refill. Absent: tenderness, pedal edema, joint swelling, calf tenderness Back exam: Present: normal inspection Neurological exam: Present: alert, oriented X3, CN II-XII intact Psychiatric exam: Present: normal affect, normal mood Skin exam: Present: warm, dry, intact, normal color. Absent: rash Course Vital Signs 08/17/24 08/17/24 08/17/24 15:58 16:49 17:29 Temperature 97.5 F L Pulse Rate 72 66 66 Respiratory 16 16 16 Rate Blood Pressure 158/79 157/73 150/68 O2 Sat by Pulse 97 95 96 Oximetry 08/17/24 08/17/24 18:38 19:41 Temperature 97.4 F L 97.8 F Pulse Rate 60 68 Respiratory 16 16 Rate Blood Pressure 157/67 130/49 O2 Sat by Pulse 95 94 L Oximetry - Reevaluation(s) Reevaluation #1: 08/17/24 16:54 Medical records reviewed Reevaluation #2: Symptoms improved yesterday Reevaluation #3: Patient informed of results and questions answered Reevaluation #4: Was pt. sent in by a medical professional or institution (, PA, CONDUIT MECHANIC, urgent care, hospital, or prison...) When possible be specific @ -no Did you speak to anyone other than the patient for history (EMS, parent, family, police, friend...)? What history was obtained from this source @ -no Did you review nursing and triage notes (agree or disagree)? Why? @ -agree Are old charts reviewed (outside hosp., previous admission, EMS record, old EKG, old radiological studies, urgent care reports/EKG's, prison records)? Report findings @ -yes Differential Diagnosis (chest pain, altered mental status, abdominal pain women, abdominal pain men, vaginal bleeding, weakness, fever, dyspnea, syncope, headache, dizziness, GI bleed, back pain, seizure, CVA, palpatations, mental health, musculoskeletal)? @ -prior EKG interpreted by me (3pts min.). @ -yes X-rays interpreted by me (1pt min.). @ -yes negative for acute disease CT interpreted by me (1pt min.). @ -no U/S interpreted by me (1pt. min.). @ -no What testing was considered but not performed or refused? (CT, X-rays, U/S, labs)? Why? @ -none What meds were considered but not given or refused? Why? @ -none Did you discuss the management of the patient with other professionals (professionals i.e. Dr., PA, CONDUIT MECHANIC, lab, RT, psych nurse, social service director, mantel craftsman, teacher, medical officer psychiatry, case mgr)? Give summary @ -no Was smoking cessation discussed for >3mins.? @ -no Was critical care preformed (if so, how long)? @ -no Were there social determinants of health that impacted care today? How? (Homelessness, low income, unemployed, alcoholism, drug addiction, transportation, low edu. Level, literacy, decrease access to med. care, intermediate, rehab)? @ -none Was there de-escalation of care discussed even if they declined (Discuss DNR or withdrawal of care, Hospice)? DNR status @ -no What co-morbidities impacted this encounter? (DM, HTN, Smoking, COPD, CAD, Cancer, CVA, ARF, Chemo, Hep., AIDS, mental health diagnosis, sleep apnea, morbid obesity)? @ -none Was patient admitted / discharged? Hospital course, mention meds given and route, prescriptions, significant lab abnormalities, going to OR and other pertinent info. @ - 79 female to the ER for evaluation of acute torticollis and neck pain. No acute cause of symptoms found here in the ER patient feels well throughout ER stay. Discharged home Discharge Undiagnosed new problem with uncertain prognosis? @ -no Drug Therapy requiring intensive monitoring for toxicity (Heparin, Nitro, Insulin, Cardizem)? @ -no Were any procedures done? @ -no Diagnosis/symptom? @ -Neck pain Acute, or Chronic, or Acute on Chronic? @ -Acute Uncomplicated (without systemic symptoms) or Complicated (systemic symptoms)? @ -Complicated Side effects of treatment? @ -no Exacerbation, Progression, or Severe Exacerbation? @ -exacerbation Poses a threat to life or bodily function? How? (Chest pain, [place], [place], pneumonia, PE, COPD, DKA, ARF, appy, cholecystitis, CVA, Diverticulitis, Homicidal, Britt cidal, threat to staff... and all critical care pts) @ -yes extremes of age Medical Decision Making - Medical Decision Making 79 female to the ER for evaluation of acute torticollis and neck pain. No acute cause of symptoms found here in the ER patient feels well throughout ER stay. Discharged home - Lab Data Result diagrams: 08/17/24 16:15 08/17/24 16:15 Lab Results 08/17/24 08/17/24 08/17/24 Range/Units 16:15 16:15 16:15 WBC 8.86 (4.50-10.00) 10*3/uL RBC 4.91 (4.10-5.20) 10*6/uL Hgb 14.9 (12.0-15.0) g/dL Hct 44.1 (37.2-46.3) % MCV 89.8 (80.0-97.0) fL MCH 30.3 (27.0-32.0) pg MCHC 33.8 (32.0-37.0) g/dL Plt Count 246 (140-440) 10*3/uL MPV 8.8 L (9.5-12.2) fL Immature Gran % (Auto) 0.5 % Neutrophils % 70.3 % Lymphocytes % 21.1 % Monocytes % 5.8 % Eosinophils % 1.6 % Basophils % 0.7 % Immature Gran # 0.04 (0.00-0.04) 10*3/uL Neutrophils # 6.24 (1.80-7.70) 10*3/uL Lymphocytes # 1.87 (0.90-5.00) 10*3/uL Monocytes # 0.51 (0.20-1.00) 10*3/uL Eosinophils # 0.14 (0.04-0.35) 10*3/uL Basophils # 0.06 (0.00-0.10) 10*3/uL PT 10.9 (10.0-12.5) sec INR 1.0 (<1.2) APTT 26.0 (22.0-30.0) sec Sodium 140 (137-145) mmol/L Potassium 4.0 (3.5-5.1) mmol/L Chloride 105 (98-107) mmol/L Carbon Dioxide 25 (22-30) mmol/L Anion Gap 10 mmol/L BUN 18 H (7-17) mg/dL Creatinine 0.83 (0.52-1.04) mg/dL Est GFR (CKD-EPI)AfAm 77 (>60 ml/min/1.73 sqM) Est GFR (CKD-EPI)NonAf 67 (>60 ml/min/1.73 sqM) Glucose 255 H (74-99) mg/dL Calcium 9.7 (8.4-10.2) mg/dL Phosphorus 3.3 (2.5-4.5) mg/dL Magnesium 1.6 (1.6-2.3) mg/dL Total Bilirubin 0.6 (0.2-1.3) mg/dL AST 22 (14-36) U/L ALT 19 (4-34) U/L Alkaline Phosphatase 86 (38-126) U/L Troponin I (0.000-0.034) ng/mL NT-Pro-B Natriuret Pep 173 pg/mL Total Protein 6.9 (6.3-8.2) g/dL Albumin 3.8 (3.5-5.0) g/dL 08/17/24 Range/Units 16:15 WBC (4.50-10.00) 10*3/uL RBC (4.10-5.20) 10*6/uL Hgb (12.0-15.0) g/dL Hct (37.2-46.3) % MCV (80.0-97.0) fL MCH (27.0-32.0) pg MCHC (32.0-37.0) g/dL Plt Count (140-440) 10*3/uL MPV (9.5-12.2) fL Immature Gran % (Auto) % Neutrophils % % Lymphocytes % % Monocytes % % Eosinophils % % Basophils % % Immature Gran # (0.00-0.04) 10*3/uL Neutrophils # (1.80-7.70) 10*3/uL Lymphocytes # (0.90-5.00) 10*3/uL Monocytes # (0.20-1.00) 10*3/uL Eosinophils # (0.04-0.35) 10*3/uL Basophils # (0.00-0.10) 10*3/uL PT (10.0-12.5) sec INR (<1.2) APTT (22.0-30.0) sec Sodium (137-145) mmol/L Potassium (3.5-5.1) mmol/L Chloride (98-107) mmol/L Carbon Dioxide (22-30) mmol/L Anion Gap mmol/L BUN (7-17) mg/dL Creatinine (0.52-1.04) mg/dL Est GFR (CKD-EPI)AfAm (>60 ml/min/1.73 sqM) Est GFR (CKD-EPI)NonAf (>60 ml/min/1.73 sqM) Glucose (74-99) mg/dL Calcium (8.4-10.2) mg/dL Phosphorus (2.5-4.5) mg/dL Magnesium (1.6-2.3) mg/dL Total Bilirubin (0.2-1.3) mg/dL AST (14-36) U/L ALT (4-34) U/L Alkaline Phosphatase (38-126) U/L Troponin I <0.012 (0.000-0.034) ng/mL NT-Pro-B Natriuret Pep pg/mL Total Protein (6.3-8.2) g/dL Albumin (3.5-5.0) g/dL - EKG Data -: EKG Interpreted by Me (EKG is sinus 70 [place] 230 QRS 158 QTc 486) - Radiology Data Radiology results: report reviewed (X-ray chest x-ray soft tissue neck negative for acute disease), image reviewed Disposition Clinical Impression: Strain of neck muscle, Acute torticollis Disposition: HOME SELF-CARE Condition: Good Instructions (If sedation given, give patient instructions): Cervical Strain (ED), Cervical Sprain (ED) Prescriptions: Ketorolac [Toradol] 10 mg PO Q6HR #12 tab Is patient prescribed a controlled substance at d/c from ED?: No Referrals: Bryan Shine DO [Primary Care Provider] - 1-2 days Time of Disposition: 19:00
[2024-08-17] MEDS: SODIUM CHLORIDE 0.9% 1,000 ML IV ONE (16:41)
[2024-08-17] MEDS: MORPHINE SULFATE 4 MG/ML SYRINGE IV STA (16:42)
[2024-08-17] MEDS: ONDANSETRON 4 MG/2 ML VIAL IVP STA (16:42)
[2024-08-17 16:43] LABS: Basophils # (A) 0.06 10*3/uL (0.00-0.10); Basophils % (A) 0.7 %; Eosinophils # (A) 0.14 10*3/uL (0.04-0.35); Eosinophils % (A) 1.6 %; HCT 44.1 % (37.2-46.3); HGB 14.9 g/dL (12.0-15.0); Lymphocytes # (A) 1.87 10*3/uL (0.90-5.00); Lymphocytes % (A) 21.1 %; MCH 30.3 pg (27.0-32.0); MCHC 33.8 g/dL (32.0-37.0); MCV 89.8 fL (80.0-97.0); Mean Platelet Volume 8.8 fL (9.5-12.2); Monocytes # (A) 0.51 10*3/uL (0.20-1.00); Monocytes % (A) 5.8 %; Neutrophils # (A) 6.24 10*3/uL (1.80-7.70); Neutrophils % (A) 70.3 %; Platelet Count 246 10*3/uL (140-440); RBC 4.91 10*6/uL (4.10-5.20); RDW 15.1 % (11.5-14.5); WBC 8.86 10*3/uL (4.50-10.00)
[2024-08-17 16:53] LABS: Prothrombin Time 10.9 sec (10.0-12.5)
[2024-08-17 17:19] LABS: ALT 19 U/L (4-34); AST 22 U/L (14-36); African American GFR (CKD) 77 (>60 ml/min/1.73 sqM); Albumin 3.8 g/dL (3.5-5.0); Alkaline Phosphatase 86 U/L (38-126); Anion Gap 10 mmol/L; Blood Urea Nitrogen 18 mg/dL (7-17); Calcium 9.7 mg/dL (8.4-10.2); Carbon Dioxide 25 mmol/L (22-30); Chloride 105 mmol/L (98-107); Glucose 255 mg/dL (74-99); Magnesium 1.6 mg/dL (1.6-2.3); Non-African American GFR(CKD) 67 (>60 ml/min/1.73 sqM); Phosphorus 3.3 mg/dL (2.5-4.5); Sodium 140 mmol/L (137-145); Total Bilirubin 0.6 mg/dL (0.2-1.3); Total Protein 6.9 g/dL (6.3-8.2)
[2024-08-17 17:27] LABS: NT-Pro-B-Type Natriuretic Pept 173 pg/mL
--- NOTE | 2024-08-17 18:16 | XR ---
EXAMINATION TYPE: XR chest 2V DATE OF EXAM: 08/17/2024 6:10 PM COMPARISON: 05/05/2018 CLINICAL INDICATION: Female, 79 years old with history of pain, TECHNIQUE: XR chest 2V view(s) obtained. FINDINGS: The heart size is prominent. Pacemaker overlies left chest. The pulmonary vasculature is normal. The lungs are clear. IMPRESSION: 1. No acute pulmonary process. [facility], , 08/17/2024 6:14 PM
[2024-08-17] MEDS: KETOROLAC 15 MG/ML 1 ML VIAL IVP STA (18:18)
--- NOTE | 2024-08-17 18:54 | XR ---
EXAMINATION TYPE: XR soft tissue neck DATE OF EXAM: 08/17/2024 6:10 PM COMPARISON: None. CLINICAL INDICATION: Female, 79 years old with history of pain, pain TECHNIQUE: 2 view(s) obtained. FINDINGS: Prevertebral space is normal. Epiglottis is normal. The patient is edentulous. No radiopaque foreign bodies identified. Subglottic airway appears normal. There is some scoliosis in the thoracocervical spine with a convexi ty to the left. IMPRESSION: 1. No suspicious acute changes soft tissue neck. 2. There is some chronic-appearing scoliosis. This also could be related to muscle spasm. [facility], , 08/17/2024 6:52 PM
[2024-08-17] MEDS: traMADol 50 MG STARTER PACK 3 TAB BTL PO STA (19:26)
[2024-08-17] MEDS: ACET/COD 300 MG/30 MG STARTER PACK 6 TAB BTL PO STA (19:27)
[2024-08-17 19:43] VITALS: BP 130/49; PULSE 68; TEMP 97.8
== END 2024-08-17 19:50 | disposition home or self-care (01) ==
LOC: EC 15:51
DX: S16.1XXA Strain of muscle, fascia and tendon at neck level, initial encounter (principal); M43.6 Torticollis; X50.9XXA Other and unspecified overexertion or strenuous movements or postures, initial encounter; Y92.009 Unspecified place in unspecified non-institutional (private) residence as the place of occurrence of the external cause
CPT/HCPCS: 99284 ×2; 96374 ×2; 96375 ×3; 96361 ×2; 36415; 93005; 83880; 80053; 83735; 84100; 84484; 85025; 85610; 85730; 70360; 71046; J2270; J2405; J1885